=== PATIENT | female | born 1995 | race Caucasian/White ===

== ENCOUNTER 2017-08-06 01:59 | Emergency (ER) | payer BC ==
[2017-08-06] MEDS ORDERED: Sodium Chloride 0.9% 1,000 ML IV SCH (02:45)
[2017-08-06] MEDS ORDERED: HYDROmorphone 0.5 MG/0.5 ML SYRINGE IVPUSH ONE (02:56)
[2017-08-06] MEDS ORDERED: Metoclopramide 10 MG/2 ML SDV IVPUSH ONE (02:57)
[2017-08-06] MEDS ORDERED: diphenhydrAMINE 50 MG/ML SDV IVPUSH ONE (02:57)
[2017-08-06] MEDS ORDERED: Dextrose 5%-0.9% NaCl 1,000 ML IV SCH (03:00)
--- NOTE | 2017-08-06 03:02 | EDM.PDOC ---
ED HPI GENERAL MEDICAL PROBLEM - General Chief Complaint: Abdominal Pain Stated Complaint: RIGHT ABDOMINAL PAIN Time Seen by Provider: 08/06/17 02:50 Source of Information: Reports: Patient, Family (friend) History Limitations: Reports: No Limitations - History of Present Illness INITIAL COMMENTS - FREE TEXT/NARRATIVE: 22-year-old female attends the ED with complaints of severe lower abdominal/ pelvic pain. At about 0130 hrs. this morning while having intercourse she developed sudden onset of severe right-sided pelvic pain. Describes his pain is very sharp stabbing and almost tearing in nature. She states the pain was severe i.e. 10 out of 10 and nearly made her vomit. Subsequently she had to walk hunched over. Coughing or sitting up makes the pain worse. She does not believe she could be as she has Norplant in her right upper arm. No has significant withdrawal bleeds however. It is been in place for at least 18 months. Bowel function has been normal. She complains of no genitourinary complaints. No fever or chills. Onset: Today Onset Date: 08/06/17 Onset Time: 01:30 Duration: Minutes: Location: Reports: Pelvis (Right lower quadrant of the abdomen and pelvis.) Quality: Reports: Sharp, Stabbing Severity: Severe (Was 10 out of 10. Currently 8 out of 10.) Improves with: Reports: Rest Worsens with: Reports: Other (Sitting up or coughing makes it worse.), Movement (Lying really still in pain will be down to 1 or 2.) Context: Reports: Other (Occurred during sexual intercourse.). 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: Other (see below) (None.) Abdominal Pain Score (Numeric/FACES): 5 - Related Data Allergies Allergy/AdvReac Type Severity Reaction Status Date / Time fruit Allergy Anaphylactic Uncoded 08/06/17 02:13 Shock Home Meds: Home Meds Escitalopram Oxalate [Lexapro] 30 mg PO DAILY 08/06/17 [History] oxyCODONE HCl/Acetaminophen [Percocet 5-325 mg Tablet] 1 - 2 each PO Q4H PRN # 10 tablet 08/06/17 [Rx] Past Medical History Genitourinary History: Reports: UTI, Recurrent 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: , Other (See Below) Other OB/BYN History: Musculoskeletal History: Reports: Other (See Below) Other Musculoskeletal History: fx right arm and wrist Neurological History: Reports: Migraines Psychiatric History: Reports: Depression, Other (See Below) Other Psychiatric History: possibly bipolar, no official diagnosis - Past Surgical History HEENT Surgical History: Reports: Other (See Below) Other HEENT Surgeries/Procedures: sinus surgery GI Surgical History: Reports: Hernia, Abdominal Social & Family History - Tobacco Use Smoking Status *Q: Current Every Day Smoker Years of Tobacco use: 1 Packs/Tins Daily: 0.1 - Caffeine Use Caffeine Use: Reports: Soda - Recreational Drug Use Recreational Drug Use: No - Living Situation & Occupation Living situation: Reports: Single Occupation: Employed ED ROS GENERAL - Review of Systems Review Of Systems: See Below Constitutional: Reports: No Symptoms HEENT: Reports: No Symptoms Respiratory: Reports: No Symptoms Cardiovascular: Reports: No Symptoms Endocrine: Reports: No Symptoms GI/Abdominal: Reports: Abdominal Pain (Right lower quadrant abdominal/pelvic pain.) : Reports: No Symptoms Musculoskeletal: Reports: No Symptoms Skin: Reports: No Symptoms Neurological: Reports: No Symptoms Psychiatric: Reports: No Symptoms ED EXAM, GI/ABD - Physical Exam Exam: See Below Exam Limited By: No Limitations General Appearance: Alert, WD/WN, Anxious, Moderate Distress Eyes: Bilateral: Normal Appearance Respiratory/Chest: No Respiratory Distress, Lungs Clear, Normal Breath Sounds Cardiovascular: Normal Peripheral Pulses, Regular Rate, Rhythm, No Edema, No Murmur GI/Abdominal Exam: Soft (Hypoactive bowel sounds), No Organomegaly (No true peritoneal signs identified), No Distention, No Abnormal Bruit, No Mass, Pelvis Stable, Guarding, Tender (Tender suprapubically and right lower quadrant of the abdomen with mild guarding.), Abnormal Bowel Sounds, Other. No: Rigid, Rebound (Female) Exam: Normal External Exam, Adnexal Tenderness (Left side with movement of the uterus to the left and also movement of the uterus posteriorly.) , Cervix Motion Tenderness. No: Adnexal Mass, Cervical Fluid, Cervical Lesions , Enlarged Uterus, Heart Tones, Products of Conception, Uterine Tenderness , Vaginal Bleeding Back Exam: Normal Inspection, Full Range of Motion. No: CVA Tenderness (L), CVA Tenderness (R) Extremities: Normal Inspection, Normal Range of Motion, Non-Tender, No Pedal Edema Neurological: Alert, Oriented, CN II-XII Intact, Normal Cognition, Normal Gait Psychiatric: Normal Affect, Normal Mood Skin Exam: Warm, Dry, Intact, Normal Color, No Rash Course - Vital Signs Last Recorded V/S: Last Vital Signs Temp 36.3 C 08/06/17 02:14 Pulse 95 08/06/17 02:14 Resp 18 08/06/17 02:14 BP 117/68 08/06/17 02:14 Pulse Ox 99 08/06/17 02:14 - Orders/Labs/Meds Orders: Active Orders 24 hr Category Date Time Status Transvaginal Non OB [US] Stat Exams 08/06/17 03:27 Ordered ABO/RH TYPE [BBK] Stat Lab 08/06/17 02:34 Results PATIENT RETYPE [BBK] Stat Lab 08/06/17 02:34 Results Dextrose 5%-0.9% NaCl [Dextrose 5%-Normal Saline] 1,000 Med 08/06/17 03:00 Active ml IV ASDIRECTED Ketorolac [Toradol] Med 08/06/17 04:30 Active 30 mg IVPUSH ONETIME Sodium Chloride 0.9% [Normal Saline] 1,000 ml Med 08/06/17 02:45 Active IV ASDIRECTED Medication Orders Sodium Chloride (Normal Saline) 1,000 mls @ 100 mls/hr IV ASDIRECTED UMM Last Admin: 08/06/17 02:46 Dose: 100 mls/hr Dextrose/Sodium Chloride (Dextrose 5%-Normal Saline) 1,000 mls @ 150 mls/hr IV ASDIRECTED UMM Last Admin: 08/06/17 03:22 Dose: 150 mls/hr Ketorolac Tromethamine (Toradol) 30 mg IVPUSH ONETIME UMM Labs: Laboratory Tests 08/06/17 08/06/17 08/06/17 Range/Units 02:34 02:34 02:34 WBC 6.25 (3.98-10.04) K/mm3 RBC 4.51 (3.98-5.22) M/mm3 Hgb 12.8 (11.2-15.7) gm/L Hct 37.7 (34.1-44.9) % MCV 83.6 (79.4-94.8) fl MCH 28.4 (25.6-32.2) pg MCHC 34.0 (32.2-35.5) g/dl RDW Std Deviation 38.2 (36.4-46.3) fL Plt Count 352 (182-369) K/mm3 MPV 9.0 L (9.4-12.3) fl Neutrophils % (Manual) 60 (40-60) % Band Neutrophils % 0 (0-10) % Lymphocytes % (Manual) 32 (20-40) % Atypical Lymphs % 6 % Monocytes % (Manual) 1 L (2-10) % Eosinophils % (Manual) 1 (0.7-5.8) % Basophils % (Manual) 0 L (0.1-1.2) Platelet Estimate Adequate Plt Morphology Comment Normal RBC Morph Comment Normal Sodium 140 (136-145) mEq/L Potassium 4.0 (3.5-5.1) mEq/L Chloride 104 (98-107) mEq/L Carbon Dioxide 23 (21-32) mEq/L Anion Gap 17.0 H (5-15) BUN 15 (7-18) mg/dL Creatinine 0.8 (0.55-1.02) mg/dL Est Cr Clr Drug Dosing 96.06 mL/min Estimated GFR (MDRD) > 60 (>60) mL/min BUN/Creatinine Ratio 18.8 H (14-18) Glucose 91 (74-106) mg/dL Calcium 8.9 (8.5-10.1) mg/dL Total Bilirubin 0.1 L (0.2-1.0) mg/dL AST 16 (15-37) U/L ALT 25 (14-59) U/L Alkaline Phosphatase 58 (46-116) U/L C-Reactive Protein < 0.2 (<1.0) mg/dL Total Protein 6.9 (6.4-8.2) g/dl Albumin 3.7 (3.4-5.0) g/dl Globulin 3.2 gm/dL Albumin/Globulin Ratio 1.2 (1-2) HCG, Qual Negative (NEGATIVE) Urine Color (Yellow) Urine Appearance (Clear) Urine pH (5.0-8.0) Ur Specific [place] (1.005-1.030) Urine Protein (Negative) Urine Glucose (UA) (Negative) Urine Ketones (Negative) Urine Occult Blood (Negative) Urine Nitrite (Negative) Urine Bilirubin (Negative) Urine Urobilinogen (0.2-1.0) Ur Leukocyte Esterase (Negative) Urine RBC (0-5) /hpf Urine WBC (0-5) /hpf Ur Epithelial Cells (0-5) /hpf Urine Bacteria (FEW) /hpf Urine Mucus (FEW) /hpf Blood Type 08/06/17 08/06/17 Range/Units 02:34 03:40 WBC (3.98-10.04) K/mm3 RBC (3.98-5.22) M/mm3 Hgb (11.2-15.7) gm/L Hct (34.1-44.9) % MCV (79.4-94.8) fl MCH (25.6-32.2) pg MCHC (32.2-35.5) g/dl RDW Std Deviation (36.4-46.3) fL Plt Count (182-369) K/mm3 MPV (9.4-12.3) fl Neutrophils % (Manual) (40-60) % Band Neutrophils % (0-10) % Lymphocytes % (Manual) (20-40) % Atypical Lymphs % % Monocytes % (Manual) (2-10) % Eosinophils % (Manual) (0.7-5.8) % Basophils % (Manual) (0.1-1.2) Platelet Estimate Plt Morphology Comment RBC Morph Comment Sodium (136-145) mEq/L Potassium (3.5-5.1) mEq/L Chloride (98-107) mEq/L Carbon Dioxide (21-32) mEq/L Anion Gap (5-15) BUN (7-18) mg/dL Creatinine (0.55-1.02) mg/dL Est Cr Clr Drug Dosing mL/min Estimated GFR (MDRD) (>60) mL/min BUN/Creatinine Ratio (14-18) Glucose (74-106) mg/dL Calcium (8.5-10.1) mg/dL Total Bilirubin (0.2-1.0) mg/dL AST (15-37) U/L ALT (14-59) U/L Alkaline Phosphatase (46-116) U/L C-Reactive Protein (<1.0) mg/dL Total Protein (6.4-8.2) g/dl Albumin (3.4-5.0) g/dl Globulin gm/dL Albumin/Globulin Ratio (1-2) HCG, Qual (NEGATIVE) Urine Color Yellow (Yellow) Urine Appearance Clear (Clear) Urine pH 5.5 (5.0-8.0) Ur Specific [place] > or = 1.030 (1.005-1.030) Urine Protein Negative (Negative) Urine Glucose (UA) Negative (Negative) Urine Ketones Negative (Negative) Urine Occult Blood Negative (Negative) Urine Nitrite Negative (Negative) Urine Bilirubin Negative (Negative) Urine Urobilinogen 0.2 (0.2-1.0) Ur Leukocyte Esterase Negative (Negative) Urine RBC 0-5 (0-5) /hpf Urine WBC 0-5 (0-5) /hpf Ur Epithelial Cells 0-5 (0-5) /hpf Urine Bacteria Rare (FEW) /hpf Urine Mucus Moderate H (FEW) /hpf Blood Type A POSITIVE Meds: Medications Generic Name Dose Route Start Last Admin Trade Name Freq PRN Reason Stop Dose Admin Sodium Chloride 1,000 mls @ 100 mls/hr 08/06/17 02:45 08/06/17 02:46 Normal Saline IV 100 mls/hr ASDIRECTED UMM Administration Dextrose/Sodium Chloride 1,000 mls @ 150 mls/hr 08/06/17 03:00 08/06/17 03:22 Dextrose 5%-Normal Saline IV 150 mls/hr ASDIRECTED UMM Administration Ketorolac Tromethamine 30 mg 08/06/17 04:30 Toradol IVPUSH ONETIME UMM Discontinued Medications Generic Name Dose Route Start Last Admin Trade Name Freq PRN Reason Stop Dose Admin Diphenhydramine HCl 25 mg 08/06/17 02:57 08/06/17 03:19 Benadryl IVPUSH 08/06/17 02:58 25 mg ONETIME ONE Administration Hydromorphone HCl 0.5 mg 08/06/17 02:56 08/06/17 03:15 Dilaudid IVPUSH 08/06/17 02:57 0.5 mg ONETIME ONE Administration Metoclopramide HCl 7.5 mg 08/06/17 02:57 08/06/17 03:17 Reglan IVPUSH 08/06/17 02:58 7.5 mg ONETIME ONE Administration - Radiology Interpretation Free Text/Narrative:: 22-year-old female attends the ED with acute onset of severe right lower quadrant abdominal pain that started during sexual intercourse. Pain was sudden onset explosive sharp stabbing and tearing. Subsequently pain was reported to be 10 out of 10. She had to walk hunched over. History of ovarian cyst. She has a Norplant in her right upper extremity. She still has fairly heavy withdrawal periods. Hypoactive bowel sounds on abdominal examination with moderate tenderness suprapubically and right lower quadrant of the abdomen with slight guarding. Back examination revealed left adnexal tenderness more so than the right. No masses could be identified in either adnexa. Uterus is slightly enlarged. Plan IV D5 normal saline at 150 mils per hour. Will be given Dilaudid 0.5 mg IV for pain relief with Reglan 7.5 mg IV. Will also give her Benadryl 25 mg IV since she is on SSRIs and potential for dystonic reaction exists. Plan is for routine labs to rule out . Urinalysis if one becomes available. We' ll proceed with pelvic ultrasound transvaginally. Suspect ruptured left ovarian cyst. - Re-Assessments/Exams Free Text/Narrative Re-Assessment/Exam: 08/06/17 03:31 : Labs reveal a normal white count at 6.25 with 60% neutrophils and no bands. Hemoglobin is 12.8 with hematocrit of 37.7. Platelet count is normal at 352,000. Sodium is 140 with potassium of 4.0. Toward 104 with a bicarbonate of 23. And a gap is mildly elevated at 17.0. BUN is 15. Creatinine was 0.8. Glucose is 91. Liver function is normal. C-reactive protein is less than 0.2. HCG was negative. Urinalysis was negative. Blood group is A+. 08/06/17 04:10: Transvaginal ultrasound reveals a collapsed left ovarian cyst compatible with a recent rupture. There is fluid collection in the pouch of Percy primarily on the right side of the pelvis which would explain why most her pain is felt in the right side. No other abnormalities were identified within the uterine adnexa. Good blood flow to both adnexa's. She is feeling much improved after IV analgesia. I will give her Toradol 30 mg IV before pulling the IV out. She will be discharged to home to use Aleve 2 tablets every 8 hours as needed to relieve pain and inflammation. I also send a prescription home for 10 Percocet 5/325 milligram tabs 1 tablet every 4-6 hours needed for pain relief not controlled by leave alone. Note also given to excuse her from the work place for the next 48 hours. Departure - Departure Time of Disposition: 04:20 Disposition: Home, Self-Care 01 Condition: Fair Clinical Impression: Acute pelvic pain, female, Ruptured ovarian cyst - Discharge Information Prescriptions: oxyCODONE HCl/Acetaminophen [Percocet 5-325 mg Tablet] 1 - 2 each PO Q4H PRN # 10 tablet PRN Reason: pain relief. Referrals: Johnathon Caballero MD [Primary Care Provider] - Forms: ED Department Discharge, ED Return to Work/School Form Additional Instructions: Evaluation in the emergency room tonight in regards to sudden onset of severe pelvic pain during intercourse. Examination also revealed significant tenderness in the left side of the pelvis but her pain was mostly on the right side. An ultrasound performed reveals that a left ovarian cyst has ruptured and partially collapsed. There is no active bleeding within your abdomen. Most of the fluid however has collected on the right lower portion of the pelvis explaining the right sided pain. Treatment is time for your body to clean up the fluid in the pelvis which usually is 3-5 days. Just low-level activity and refrain from intercourse for the next 5 days. Chest Aleve 2 tablets every 8 hours to reduce inflammation and pain. Percocet tablets 5/325 usually one tablet every 4-6 hours with the Aleve will alleviate pain over the next 2-3 days. Suggest off work today and tomorrow. Follow-up with your physician specialist if any further problems occur. - My Orders Last 24 Hours: My Active Orders 08/06/17 02:34 ABO/RH TYPE [BBK] Stat PATIENT RETYPE [BBK] Stat 08/06/17 02:45 Sodium Chloride 0.9% [Normal Saline] 1,000 ml IV ASDIRECTED 08/06/17 03:00 Dextrose 5%-0.9% NaCl [Dextrose 5%-Normal Saline] 1,000 ml IV ASDIRECTED 08/06/17 03:27 Transvaginal Non OB [US] Stat 08/06/17 04:30 Ketorolac [Toradol] 30 mg IVPUSH ONETIME - Assessment/Plan Last 24 Hours: My Active Orders 08/06/17 02:34 ABO/RH TYPE [BBK] Stat PATIENT RETYPE [BBK] Stat 08/06/17 02:45 Sodium Chloride 0.9% [Normal Saline] 1,000 ml IV ASDIRECTED 08/06/17 03:00 Dextrose 5%-0.9% NaCl [Dextrose 5%-Normal Saline] 1,000 ml IV ASDIRECTED 08/06/17 03:27 Transvaginal Non OB [US] Stat 08/06/17 04:30 Ketorolac [Toradol] 30 mg IVPUSH ONETIME
[2017-08-06] MEDS ORDERED: Ketorolac 30 MG/ML SDV IVPUSH SCH (04:30)
--- NOTE | 2017-08-06 11:53 | US ---
Pelvic ultrasound: Multiple real-time images were obtained transvaginally. Uterus changed from anteverted to retroverted during the exam. No focal myometrial abnormality is seen. Endometrial thickness is normal at 5 mm. Free fluid is seen within the cul-de-sac and within the left adnexa. Follicles are noted within the right ovary. Left ovary shows a small cyst measuring 2.0 cm. There is an additional irregular fluid collection within the left ovary possibly due to collapsing cyst as an etiology for the free fluid. No additional ovary or adnexal abnormalities are seen. Measurements: Uterus: Length 7.4 cm, AP height 3.7 cm, transverse measurement was not made. Right ovary: 3.4 x 1.9 x 2.6 cm Left ovary: 5.3 x 2.6 x 2.6 cm Impression: 1. Free fluid within the pelvis and left adnexa. Small irregular cyst within the left ovary most likely representing etiology for the for the free fluid. Additional small cyst which is likely physiologic within the left ovary. 2. Pelvic ultrasound is otherwise unremarkable. Diagnostic code #3 Agree with preliminary report issued by [employer] ([facility] preliminary report dictated on 08/06/17, 5:35 AM Central Time)
== END 2017-08-06 04:30 | disposition home or self-care (01) ==
LOC: JD.ED 01:59
DX: N83.201 Unspecified ovarian cyst, right side (principal); F32.9 Major depressive disorder, single episode, unspecified; F17.210 Nicotine dependence, cigarettes, uncomplicated; Z79.899 Other long term (current) drug therapy; Z91.018 Allergy to other foods
CPT/HCPCS: 36415; 76830; 80053; 81001; 84703; 85025; 86140; 86900; 86901; 96361; 96374; 96375; 99284; J1170; J1200; J1885; J2765; J7040; J7042

== ENCOUNTER 2017-10-05 12:02 | Emergency (ER) | payer BC ==
[2017-10-05] MEDS ORDERED: Lidocaine 1% with EPINEPHrine 1:100,000 20 ML MDV INJECT ONE (12:26)
--- NOTE | 2017-10-05 12:36 | EDM.PDOC ---
<Hafsa Caicedo - Last Filed: 10/05/17 18:36> ED HPI GENERAL MEDICAL PROBLEM - General Chief Complaint: Laceration Stated Complaint: ARM LAC Time Seen by Provider: 10/05/17 12:25 Source of Information: Reports: Patient History Limitations: Reports: No Limitations - History of Present Illness INITIAL COMMENTS - FREE TEXT/NARRATIVE: Patient is a 22 YO female who presents today for a laceration on her left arm. She states she tripped and fell down the stairs this morning. The stairs have some nails that she thinks is the cause of the laceration to the arm. She denies headache, chest pain, pelvic pain or dizziness. She denies injury to any other part of her body. Patient is unaware of her last tetanus. 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: Musculoskeletal History: Reports: Fracture Other Musculoskeletal History: fx right arm and wrist Neurological History: Reports: Migraines Psychiatric History: Reports: Bipolar, Depression Other Psychiatric History: possibly bipolar, no official diagnosis - Past Surgical History HEENT Surgical History: Reports: Naso-Sinus Surgery GI Surgical History: Reports: Hernia, Abdominal Social & Family History - Tobacco Use Smoking Status *Q: Former Smoker Years of Tobacco use: 1 Packs/Tins Daily: 0.1 Used Tobacco, but Quit: Yes Month/Year Tobacco Last Used: 3 months - Caffeine Use Caffeine Use: Reports: Energy Drinks - Recreational Drug Use Recreational Drug Use: No - Living Situation & Occupation Living situation: Reports: Single Occupation: Employed ED ROS GENERAL - Review of Systems Review Of Systems: See Below Constitutional: Reports: No Symptoms HEENT: Reports: No Symptoms Respiratory: Reports: No Symptoms Cardiovascular: Reports: No Symptoms GI/Abdominal: Reports: No Symptoms Musculoskeletal: Reports: No Symptoms Skin: Reports: Other (laceration left proximal forearm) Neurological: Reports: No Symptoms Psychiatric: Reports: No Symptoms ED EXAM, SKIN/RASH Exam: See Below Exam Limited By: No Limitations General Appearance: Alert, WD/WN, No Apparent Distress Skin: Other (SubQ laceration approximately 4 cm to the left proximal forearm) Location, Skin: Upper Extremity, Left ED SKIN PROCEDURES - Laceration/Wound Repair Left Lower Anterior Proximal Arm Lac/Wound length In cm: 4 Appearance: Subcutaneous Distal NVT: Neuro & Vascular Intact, No Tendon Injury Anesthetic Type: Local Local Anesthesia - Lidocaine (Xylocaine): 1% with EPI Local Anesthetic Volume: 3cc Skin Prep: Chlorhexidine (Hibiciens), Saline, Sterile Drape Exploration/Debridement/Repair: No Foreign Material Found Closed with: Sutures Suture Size: 4-0 # of Sutures: 5 Suture Type: Nylon Sterile Dressing Applied: Nurse Tetanus Status Addressed: Other (tetanus given today) Course - Vital Signs Last Recorded V/S: Last Vital Signs Temp 36.9 C 10/05/17 12:08 Pulse 70 10/05/17 12:08 Resp 16 10/05/17 12:08 BP 108/72 10/05/17 12:08 Pulse Ox 98 10/05/17 12:08 - Orders/Labs/Meds Orders: Active Orders 24 hr Category Date Time Status Vaccines to be Administered [RC] PER UNIT ROUTINE Care 10/05/17 12:52 Active Meds: Medications Discontinued Medications Generic Name Dose Route Start Last Admin Trade Name Freq PRN Reason Stop Dose Admin Diphtheria/Tetanus/Acell Pertussis 0.5 ml 10/05/17 12:52 10/05/17 13:14 Adacel IM 10/05/17 12:53 0.5 ml .ONCE ONE Administration Lidocaine/Epinephrine 20 ml 10/05/17 12:26 10/05/17 12:32 Xylocaine 1% With Epinephrine 1:100,000 INJECT 10/05/17 12:27 20 ml ONETIME ONE Administration Departure - Departure Disposition: Home, Self-Care 01 Clinical Impression: Laceration of forearm, left Qualifiers: Encounter type: initial encounter Qualified Code(s): S51.812A - Laceration without foreign body of left forearm, initial encounter - Discharge Information Instructions: Laceration Care, Adult, [id number] Referrals: Johnathon Caballero MD [Primary Care Provider] - Forms: ED Department Discharge, ED Return to Work/School Form Additional Instructions: Evaluation the emergency room today in regards to injury to the volar aspect of your left forearm. Sharp in the stairwell resulted in a laceration to the proximal left volar forearm. Laceration is a little over 2 cm in length. Wound was cleansed and then sutured under local anesthetic. Treatment at home is to daily cleanse the wound was soap and water showering is okay but the wound should not be soaked under water until the stitches are removed. Apply topical antibiotic such bacitracin or Polysporin to the wound once daily and cover with a bandage if needed to keep clean and from friction from over lying clothing. Sutures will need to be removed in 10 days' time. Of course return to medical care sooner if you see any signs of infection such as redness increased swelling or obvious pus. - My Orders Last 24 Hours: My Active Orders 10/05/17 12:52 Vaccines to be Administered [RC] PER UNIT ROUTINE - Assessment/Plan Last 24 Hours: My Active Orders 10/05/17 12:52 Vaccines to be Administered [RC] PER UNIT ROUTINE <Bipin Moreno - Last Filed: 10/05/17 19:24> ED HPI GENERAL MEDICAL PROBLEM - History of Present Illness Onset: Today Onset Date: 10/05/17 Onset Time: 11:30 Duration: Minutes: Location: Reports: Upper Extremity, Left (Left proximal volar forearm.) Quality: Reports: Ache, Stabbing Severity: Mild Improves with: Reports: None Worsens with: Reports: None Context: Reports: Other (Slipped while going down the stairwell and she believes that a ailyn nail or screw had caught her in the proximal forearm and resulted in a 1 inch laceration.) Associated Symptoms: Denies: Confusion, Chest Pain, Cough, Diaphoresis, Fever/ Chills, Headaches, Nausea/Vomiting Treatments 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.) ED SKIN PROCEDURES - Laceration/Wound Repair Left Proximal Arm Lac/Wound length In cm: 2.0 Distal NVT: Neuro & Vascular Intact Anesthetic Type: Local Local Anesthesia - Lidocaine (Xylocaine): 1% Plain Local Anesthetic Volume: 3cc Skin Prep: Saline Closed with: Sutures Suture Size: 4-0 # of Sutures: 5 Suture Type: Nylon, Interrupted, Simple Course - Orders/Labs/Meds Orders: Active Orders 24 hr Category Date Time Status Vaccines to be Administered [RC] PER UNIT ROUTINE Care 10/05/17 12:52 Active - Radiology Interpretation Free Text/Narrative:: 22-year-old female presents to the ED with an acute laceration to her left proximal volar forearm. This occurred when she tripped going down [employer] and she believes a ailyn nail caught her skin and toward. This resulted in a 2 cm laceration to the proximal forearm. Wound will be irrigated and cleansed. T gap will be updated. Will require suture repair. - Re-Assessments/Exams Free Text/Narrative Re-Assessment/Exam: 10/05/17 13;15: Laceration repaired under local anesthetic. Length was 2 cm. 5 sutures of 4-0 Ethilon were used to close the wound. Patient will cleanse the wound daily with soap and water. Showering is okay. She will apply topical atomoxetine bacitracin Polysporin to the wound once daily. Sutures are removed in 10 days' time Departure - Departure Time of Disposition: 13:28 Condition: Fair - My Orders Last 24 Hours: My Active Orders 10/05/17 12:52 Vaccines to be Administered [RC] PER UNIT ROUTINE - Assessment/Plan Last 24 Hours: My Active Orders 10/05/17 12:52 Vaccines to be Administered [RC] PER UNIT ROUTINE
[2017-10-05] MEDS ORDERED: Diphtheria,Pertussis(Acell),Tetanus Vaccine 0.5 ML SDV IM ONE (12:52)
== END 2017-10-05 13:39 | disposition home or self-care (01) ==
LOC: JD.ED 12:02
DX: S51.812A Laceration without foreign body of left forearm, initial encounter (principal); Z91.018 Allergy to other foods; Z79.899 Other long term (current) drug therapy; Z87.891 Personal history of nicotine dependence; Z23 Encounter for immunization; W26.8XXA Contact with other sharp object(s), not elsewhere classified, initial encounter
CPT/HCPCS: 12002; 90471; 90715; 99282-25; 99283-25

== ENCOUNTER 2018-08-17 09:50 | Day surgery (SDC) | payer BC ==
[~2018-08-17 09:50] MED LIST: Dexamethasone 4 MG/ML 5 ML MDV ONE; Ketorolac 30 MG/ML SDV ONE; Lactated Ringers 0 ML ONE; Lactated Ringers 1,000 ML IV SCH; Lidocaine 1% PF 2 ML SDV ONE; Lidocaine 1%/Sod Bicarbonate in NS 8.4% 1 ML Syringe IDERM PRN; Midazolam 1 MG/ML 2 ML SDV ONE; Ondansetron 4 MG/2 ML SDV ONE; Propofol 200 MG/20 ML SDV ONE; Rocuronium 50 MG/5 ML Vial ONE; Sodium Chloride 0.9% 10 ML Syringe FLUSH PRN; ceFAZolin 1 GM Vial ONE; fentaNYL 250 MCG/5 ML SDV ONE
[2018-08-17] MEDS ORDERED: Bupivacaine 0.5% 30 ML SDV ONE (10:16)
[2018-08-17] MEDS ORDERED: Scopolamine 1.5 MG Transdermal Patch TOP ONE (10:52)
[2018-08-17] MEDS ORDERED: Propofol 200 MG/20 ML SDV ONE (10:54)
--- NOTE | 2018-08-17 11:10 | PCM.PREANE ---
Preanesthetic Assessment - Anesthesia/Transfusion/Family Hx Anesthesia History: Prior Anesthesia Reaction Type of Anesthesia Reaction: Excessive Somnolence, Excessive Nausea/Vomiting Family History of Anesthesia Reaction: No - Review of Systems General: No Symptoms Pulmonary: No Symptoms, Other (Quite smoking 3 weeks ago. ) Cardiovascular: No Symptoms Gastrointestinal: No Symptoms Neurological: No Symptoms Other: Reports: Depression, Anxiety (Bipolar/PTSD) - Physical Assessment NPO Status Date: 08/16/18 NPO Status Time: 22:00 O2 Sat by Pulse Oximetry: 99 Respiratory Rate: 16 Vital Signs: Last Vital Signs Temp 36.8 C 08/17/18 10:05 Pulse 66 08/17/18 10:05 Resp 16 08/17/18 10:05 BP 115/66 08/17/18 10:05 Pulse Ox 99 08/17/18 10:05 Height: 1.63 m Weight: 70.76 kg ASA Class: 2 Mental Status: Alert & Oriented x3 Dentition: Reports: Normal Dentition Thyro-Mental Finger Breadths: 3 Mouth Opening Finger Breadths: 3 ROM/Head Extension: Full Lungs: Clear to Auscultation, Normal Respiratory Effort Cardiovascular: Regular Rate, Regular Rhythm - Lab Values: Laboratory Last Values WBC 3.86 K/mm3 (3.98-10.04) L 08/16/18 11:40 RBC 4.70 M/mm3 (3.98-5.22) 08/16/18 11:40 Hgb 13.2 gm/L (11.2-15.7) 08/16/18 11:40 Hct 38.7 % (34.1-44.9) 08/16/18 11:40 MCV 82.3 fl (79.4-94.8) 08/16/18 11:40 MCH 28.1 pg (25.6-32.2) 08/16/18 11:40 MCHC 34.1 g/dl (32.2-35.5) 08/16/18 11:40 RDW Std Deviation 36.5 fL (36.4-46.3) 08/16/18 11:40 Plt Count 327 K/mm3 (182-369) 08/16/18 11:40 MPV 9.2 fl (9.4-12.3) L 08/16/18 11:40 Neut % (Auto) 54.4 % (34.0-71.1) 08/16/18 11:40 Lymph % (Auto) 38.6 % (19.3-51.7) 08/16/18 11:40 [place] % (Auto) 6.0 % (4.7-12.5) 08/16/18 11:40 Eos % (Auto) 0.5 (0.7-5.8) L 08/16/18 11:40 Baso % (Auto) 0.5 % (0.1-1.2) 08/16/18 11:40 Neut # (Auto) 2.10 K/mm3 (1.56-6.13) 08/16/18 11:40 Lymph # (Auto) 1.49 K/mm3 (1.18-3.74) 08/16/18 11:40 [place] # (Auto) 0.23 K/mm3 (0.24-0.36) L 08/16/18 11:40 Eos # (Auto) 0.02 K/mm3 (0.04-0.36) L 08/16/18 11:40 Baso # (Auto) 0.02 K/mm3 (0.01-0.08) 08/16/18 11:40 Urine Color Yellow (Yellow) 08/16/18 11:40 Urine Appearance Slt cloudy (Clear) H 08/16/18 11:40 Urine pH 6.0 (5.0-8.0) 08/16/18 11:40 Ur Specific [place] 1.025 (1.005-1.030) 08/16/18 11:40 Urine Protein Negative (Negative) 08/16/18 11:40 Urine Glucose (UA) Negative (Negative) 08/16/18 11:40 Urine Ketones Negative (Negative) 08/16/18 11:40 Urine Occult Blood Negative (Negative) 08/16/18 11:40 Urine Nitrite Positive (Negative) H 08/16/18 11:40 Urine Bilirubin Negative (Negative) 08/16/18 11:40 Urine Urobilinogen 0.2 (0.2-1.0) 08/16/18 11:40 Ur Leukocyte Esterase Negative (Negative) 08/16/18 11:40 Urine HCG, Qual Negative (NEGATIVE) 08/16/18 11:40 - Allergies Allergies/Adverse Reactions: Allergies Allergy/AdvReac Type Severity Reaction Status Date / Time [place] And Derivatives Allergy Anaphylactic Verified 08/16/18 13:43 Shock fruit Allergy Anaphylactic Uncoded 08/16/18 13:43 Shock - Anesthesia Plan Pre-Op Medication Ordered: Other (Scopalamine patch) - Acknowledgements Anesthesia Type Planned: General Anesthesia Pt an Appropriate Candidate for the Planned Anesthesia: Yes Alternatives and Risks of Anesthesia Discussed w Pt/Guardian: Yes Pt/Guardian Understands and Agrees with Anesthesia Plan: Yes PreAnesthesia Questionnaire HEENT History: Reports: Impaired Vision Cardiovascular History: Reports: None Respiratory History: Reports: None Genitourinary History: Reports: UTI, Recurrent 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: , Other (See Below) Other OB/BYN History: ovarian cyst, pelvic pain, dyspareunia Musculoskeletal History: Reports: Fracture Other Musculoskeletal History: fx right arm and wrist Neurological History: Reports: Migraines Psychiatric History: Reports: Bipolar, Depression Other Psychiatric History: possibly bipolar, no official diagnosis Endocrine/Metabolic History: Reports: None Hematologic History: Reports: None Immunologic History: Reports: None Oncologic (Cancer) History: Reports: None Dermatologic History: Reports: None - Past Surgical History Head Surgeries/Procedures: Reports: None HEENT Surgical History: Reports: Naso-Sinus Surgery Other HEENT Surgeries/Procedures: sinus surgery Cardiovascular Surgical History: Reports: None Respiratory Surgical History: Reports: None GI Surgical History: Reports: Hernia, Abdominal, Hernia Repair/Other Female Surgical History: Reports: Section Endocrine Surgical History: Reports: None Neurological Surgical History: Reports: None Musculoskeletal Surgical History: Reports: None Oncologic Surgical History: Reports: None Dermatological Surgical History: Reports: None - SUBSTANCE USE Smoking Status *Q: Former Smoker Recreational Drug Use History: No - HOME MEDS Home Medications: Home Meds lamoTRIgine [Lamictal] 50 mg PO BID 10/05/17 [History] Escitalopram [Lexapro] 25 mg PO BID 08/16/18 [History] [place] Carbonate 300 mg PO DAILY 08/16/18 [History] traZODone HCl [Trazodone HCl] 50 mg PO BEDTIME 08/16/18 [History] - CURRENT (IN HOUSE) MEDS Current Meds: Current Medications Lactated Ringer's (Ringers, Lactated) 1,000 mls @ 125 mls/hr IV ASDIRECTED UMM Stop: 08/20/18 23:00 Last Admin: 08/17/18 10:45 Dose: 125 mls/hr Lidocaine/Sodium Bicarbonate (Buffered Lidocaine 1% In Ns 8.4%) 0.25 ml IDERM ONETIME PRN PRN Reason: Prior to IV Start Stop: 08/20/18 23:00 Last Admin: 08/17/18 10:45 Dose: 0.25 ml Sodium Chloride (Saline Flush) 10 ml FLUSH ASDIRECTED PRN PRN Reason: Keep Vein Open Stop: 08/20/18 23:00 Discontinued Medications Bupivacaine HCl (Marcaine 0.5%) Confirm Administered Dose 30 ml .ROUTE .STK-MED ONE Stop: 08/17/18 10:17 Cefazolin Sodium (Ancef) Confirm Administered Dose 2 gm .ROUTE .STK-MED ONE Stop: 08/17/18 08:58 Dexamethasone (Dexamethasone) Confirm Administered Dose 20 mg .ROUTE .STK-MED ONE Stop: 08/17/18 08:59 Fentanyl (Sublimaze) Confirm Administered Dose 250 mcg .ROUTE .STK-MED ONE Stop: 08/17/18 08:59 Lactated Ringer's (Ringers, Lactated) Confirm Administered Dose 1,000 mls @ as directed .ROUTE .STK-MED ONE Stop: 08/17/18 08:58 Ketorolac Tromethamine (Toradol) Confirm Administered Dose 30 mg .ROUTE .STK- MED ONE Stop: 08/17/18 08:59 Lidocaine HCl (Xylocaine-Mpf 1%) Confirm Administered Dose 4 ml .ROUTE .STK-MED ONE Stop: 08/17/18 08:58 Midazolam HCl (Versed 1 Mg/Ml) Confirm Administered Dose 2 mg .ROUTE .STK-MED ONE Stop: 08/17/18 08:59 Ondansetron HCl (Zofran) Confirm Administered Dose 4 mg .ROUTE .STK-MED ONE Stop: 08/17/18 08:58 Propofol (Diprivan 20 Ml) Confirm Administered Dose 400 mg .ROUTE .STK-MED ONE Stop: 08/17/18 08:58 Propofol (Diprivan 20 Ml) Confirm Administered Dose 600 mg .ROUTE .STK-MED ONE Stop: 08/17/18 10:55 Rocuronium [place] (Zemuron) Confirm Administered Dose 50 mg .ROUTE .STK-MED ONE Stop: 08/17/18 08:58 Scopolamine (Transderm-Scop) 1.5 mg TOP ONETIME ONE Stop: 08/17/18 10:53 Last Admin: 08/17/18 10:57 Dose: 1.5 mg
[2018-08-17] MEDS ORDERED: Lactated Ringers 1,000 ML ONE (12:27)
[2018-08-17] MEDS ORDERED: Neostigmine Methylsulfate 1 MG/ML 5 ML Syringe ONE (12:35)
--- NOTE | 2018-08-17 12:59 | PCM.POSTAN ---
POST ANESTHESIA ASSESSMENT - MENTAL STATUS Mental Status: Alert, Oriented - VITAL SIGNS Pulse Rate: 74 SaO2: 100 Resp Rate: 11 Blood Pressure: 107/62 Temperature: 36.7 C - RESPIRATORY Respiratory Status: Respiratory Rate WNL, Airway Patent, O2 Saturation Stable, Supplemental Oxygen - CARDIOVASCULAR CV Status: Pulse Rate WNL, Blood Pressure Stable - GASTROINTESTINAL GI Status: No Symptoms - PAIN Pain Score: 0 - POST OP HYDRATION Hydration Status: Adequate & Stable
[2018-08-17] MEDS ORDERED: Haloperidol Lactate 5 MG/ML SDV IVPUSH ONE (13:00)
[2018-08-17] MEDS ORDERED: fentaNYL 100 MCG/2 ML SDV IVPUSH PRN (13:00)
[2018-08-17] MEDS ORDERED: HYDROmorphone 0.5 MG/0.5 ML Syringe IVPUSH PRN (13:00)
[2018-08-17] MEDS ORDERED: diphenhydrAMINE 50 MG/ML SDV IVPUSH PRN (13:00)
[2018-08-17] MEDS ORDERED: Acetaminophen/oxyCODONE 325-5 MG Tab PO PRN (13:28)
--- NOTE | 2018-08-17 13:32 | PCM.OPNOTE ---
- General Post-Op/Procedure Note Condition: Good Free Text/Narrative:: Intake & Output 08/16/18 08/17/18 08/17/18 22:59 06:59 14:59 Output Total 150 Balance -150 Surgery duration: 35 minutes Herb is a 23-year-old 1 para 1001 white female who is seen in outpatient surgery. After patient was appropriately consented she was taken to the operating room and placed in supine position on the operating table. She received 2 g of Ancef preoperatively and had sequential compression stockings in place for DVT prophylaxis. She is given general endotracheal anesthesia. She is placed in the dorsal lithotomy position and prepped and draped in usual fashion. An indwelling bladder catheter was placed. Left upper quadrant port site was because of the patient's history of previous umbilical hernia repair with mesh. Area overlying the strip on the left side was infiltrated with Marcaine 0.5% approximately 3-5 mL. Incision was made approximately 5 mm in length. There isplaced above the rib into the peritoneal cavity. Pneumoperitoneum was established using 3 L 2. 5 mm trochars and placed below the rib through the same skin incision. The scope was placed and pneumoperitoneum was found to be adequate and entrance into the peritoneal cavity was successful. Patient noted to have adhesions from the omentum up to the umbilicus. Some other adhesions involving the ovaries bilaterally and these were wispy in nature. The anterior and posterior cul-de-sac along with the uterus and fallopian tubes appeared normal. Adhesions and wispy adhesions involving the ovaries and uterus were taken down using a combination of sharp and blunt dissection and cautery. Per patient desire and because of repeated hemorrhagic appearing ovarian cysts despite being on hormonal suppression therapy decision was made to take the right ovary out. Patient wanted to retain the left ovary and fallopian tubes along with the uterus. Using an Enseal meso-ovarii vessels were cauterized and the ovary was freed up completely. It was placed into an Endo Catch bag and removed through the suprapubic port site. At this time the port sites had trochars removed from the suprapubic and right lower quadrant site. Pneumoperitoneum was reversed. Upper left abdominal port and removed. The fascia was closed in the suprapubic area with a short running suture of 0 Vicryl. All skin incisions were closed with subcuticular interrupted sutures of 3-0 Monocryl. The skin incisions were further approximated with Dermabond skin glue. The Mclaughlin catheter was removed from bladder. The patient was returned to supine position and awakened from general endotracheal anesthesia.
== END 2018-08-17 15:30 | disposition home or self-care (01) ==
LOC: JD.SDS 09:50
PROVIDERS: ATTEND Obstetrics & Gynecology
DX: N83.291 Other ovarian cyst, right side (principal); N73.6 Female pelvic peritoneal adhesions (postinfective); F31.9 Bipolar disorder, unspecified; F43.10 Post-traumatic stress disorder, unspecified; Z91.018 Allergy to other foods; Z91.048 Other nonmedicinal substance allergy status; Z87.891 Personal history of nicotine dependence; Z79.899 Other long term (current) drug therapy; Z98.890 Other specified postprocedural states
CPT/HCPCS: 36415; 58661; 80048; 81003; 81025; 85025; A9270; J0690; J1100; J2001; J2405; J2704; J2710; J3010; J3490; J7120; 00840; J1885; J2250

== ENCOUNTER 2019-07-01 08:59 | Emergency (ER) | payer BC ==
[2019-07-01] MEDS ORDERED: Sodium Chloride 0.9% 10 ML Syringe FLUSH PRN (09:21)
[2019-07-01] MEDS ORDERED: Ondansetron 4 MG/2 ML SDV IVPUSH ONE (09:24)
--- NOTE | 2019-07-01 09:30 | EDM.PDOC ---
ED HPI GENERAL MEDICAL PROBLEM - General Chief Complaint: [employer] REPAIR Problem Stated Complaint: 6 WEEKS PREG AND BLEEDING Time Seen by Provider: 07/01/19 09:08 Source of Information: Reports: Patient, RN Notes Reviewed History Limitations: Reports: No Limitations - History of Present Illness INITIAL COMMENTS - FREE TEXT/NARRATIVE: Patient is a 24-year-old female who presents to the ED for the evaluation of vaginal bleeding and . The patient notes that her last menstrual period was 05/24/2019. She is a G4, , she has had 2 previous miscarriages , and 1 of the miscarriages needed a D&C. 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 The patient states that she noticed some vaginal bleeding this morning when she got off work, this is not enough to make her have a pad present, but she states that she had a little bit of bleeding visible when she went to the bathroom. She is not experiencing any cramping or abdominal pain, nor did she feel any sort of gush of fluid sensation. Patient also denies any sort of urinary issues, she has not had any dysuria, urinary frequency or urgency, no fevers or chills, no vomiting or diarrhea. She states she is having a little bit of nausea as well. The patient notes that she has had prior abdominal surgeries, she has had a for her viable , she has had a hernia repair, and one ovary removed due to cysts. - Related Data Allergies Allergy/AdvReac Type Severity Reaction Status Date / Time [place] And Derivatives Allergy Anaphylactic Verified 07/01/19 09:11 Shock fruit Allergy Anaphylactic Uncoded 08/16/18 13:43 Shock metal Allergy Hives Uncoded 07/01/19 09:11 Home Meds: Home Meds lamoTRIgine [Lamictal] 50 mg PO BID 10/05/17 [History] Escitalopram [Lexapro] 25 mg PO BID 08/16/18 [History] [place] Carbonate 300 mg PO DAILY 08/16/18 [History] traZODone HCl [Trazodone HCl] 50 mg PO BEDTIME 08/16/18 [History] Past Medical History HEENT History: Reports: Impaired Vision Genitourinary History: Reports: UTI, Recurrent [employer]LE[employer]ASSIS REPAIR History: Reports: , Spontaneous , Other (See Below) : 4 Para: 1 (A 2, 2 miscarriage with one requiring D&C) Other [employer]LE[employer]ASS[employer] REPAIR History: ovarian cyst, pelvic pain, dyspareunia Musculoskeletal History: Reports: Fracture Other Musculoskeletal History: fx right arm and wrist Neurological History: Reports: Migraines Psychiatric History: Reports: Bipolar, Depression Other Psychiatric History: possibly bipolar, no official diagnosis - Past Surgical History HEENT Surgical History: Reports: Naso-Sinus Surgery Other HEENT Surgeries/Procedures: sinus surgery GI Surgical History: Reports: Hernia, Abdominal Female Surgical History: Reports: Section, Oophorectomy (for cysts on her R ovary) Social & Family History - Family History Family Medical History: Noncontributory - Tobacco Use Smoking Status *Q: Never Smoker - Caffeine Use Caffeine Use: Reports: None - Recreational Drug Use Recreational Drug Use: No - Living Situation & Occupation Living situation: Reports: Single Occupation: Employed ED ROS GENERAL - Review of Systems Review Of Systems: See Below Constitutional: Denies: Fever, Chills Respiratory: Denies: Shortness of Breath, Cough Cardiovascular: Denies: Chest Pain GI/Abdominal: Reports: Nausea. Denies: Abdominal Pain, Constipation, Diarrhea, Vomiting : Reports: Other (minimal vaginal bleeding, no clots). Denies: Discharge, Dysuria, Frequency, Pain, Urgency Neurological: Denies: Dizziness, Syncope ED EXAM - Physical Exam Exam: See Below Exam Limited By: No Limitations General Appearance: Alert, WD/WN, No Apparent Distress, Anxious Eye Exam: Bilateral Eye: EOMI, Normal Inspection, PERRL Throat/Mouth: Normal Inspection, Normal Lips, Normal Teeth, Normal Gums, Normal Oropharynx, Normal Voice, No Airway Compromise Head: Atraumatic, Normocephalic Neck: Normal Inspection Respiratory/Chest: No Respiratory Distress, Lungs Clear, Normal Breath Sounds, No Accessory Muscle Use, Chest Non-Tender Cardiovascular: Normal Peripheral Pulses, Regular Rate, Rhythm, No Murmur GI/Abdominal Exam: Normal Bowel Sounds, Soft, Non-Tender, No Distention, No Mass (Female) Exam: Other (deferred ) Heart Tones: Not Winn Movement: Not Appreciated Neurological: Alert, Oriented, Normal Cognition, No Motor/Sensory Deficits Psychiatric: Normal Affect, Normal Mood, Anxious (pt states that she is anxious d/t past miscarriages) Skin Exam: Warm, Dry, Intact, Normal Color, No Rash Course - Vital Signs Last Recorded V/S: Last Vital Signs Temp 97.9 F 07/01/19 09:06 Pulse 86 07/01/19 09:06 Resp 19 07/01/19 09:06 BP 123/76 07/01/19 09:06 Pulse Ox 100 07/01/19 09:06 - Orders/Labs/Meds Orders: Active Orders 24 hr Category Date Time Status Peripheral IV Care [RC] . DIRECTED Care 07/01/19 09:23 Active Sodium Chloride 0.9% [Saline Flush] Med 07/01/19 09:21 Active 10 ml FLUSH ASDIRECTED PRN Peripheral IV Insertion Adult [OM.PC] Stat Oth 07/01/19 09:21 Ordered Medication Orders Sodium Chloride (Saline Flush) 10 ml FLUSH ASDIRECTED PRN PRN Reason: Keep Vein Open Last Admin: 07/01/19 10:17 Dose: 10 ml Labs: Laboratory Tests 07/01/19 07/01/19 07/01/19 Range/Units 09:29 09:29 09:29 WBC 4.30 (3.98-10.04) K/mm3 RBC 4.89 (3.98-5.22) M/mm3 Hgb 13.9 (11.2-15.7) gm/dl Hct 41.8 (34.1-44.9) % MCV 85.5 D (79.4-94.8) fl MCH 28.4 (25.6-32.2) pg MCHC 33.3 (32.2-35.5) g/dl RDW Std Deviation 37.6 (36.4-46.3) fL Plt Count 329 (182-369) K/mm3 MPV 8.5 L (9.4-12.3) fl Neut % (Auto) 54.4 (34.0-71.1) % Lymph % (Auto) 37.2 (19.3-51.7) % [place] % (Auto) 7.7 (4.7-12.5) % Eos % (Auto) 0.2 L (0.7-5.8) Baso % (Auto) 0.5 (0.1-1.2) % Neut # (Auto) 2.34 (1.56-6.13) K/mm3 Lymph # (Auto) 1.60 (1.18-3.74) K/mm3 [place] # (Auto) 0.33 (0.24-0.36) K/mm3 Eos # (Auto) 0.01 L (0.04-0.36) K/mm3 Baso # (Auto) 0.02 (0.01-0.08) K/mm3 HCG, Quant 295.0 mIU/mL Urine Color (Yellow) Urine Appearance (Clear) Urine pH (5.0-8.0) Ur Specific [place] (1.005-1.030) Urine Protein (Negative) Urine Glucose (UA) (Negative) Urine Ketones (Negative) Urine Occult Blood (Negative) Urine Nitrite (Negative) Urine Bilirubin (Negative) Urine Urobilinogen (0.2-1.0) Ur Leukocyte Esterase (Negative) Urine RBC (0-5) /hpf Urine WBC (0-5) /hpf Ur Epithelial Cells (0-5) /hpf Urine Bacteria (FEW) /hpf Urine Mucus (FEW) /hpf Blood Type A POSITIVE 07/01/19 Range/Units 10:19 WBC (3.98-10.04) K/mm3 RBC (3.98-5.22) M/mm3 Hgb (11.2-15.7) gm/dl Hct (34.1-44.9) % MCV (79.4-94.8) fl MCH (25.6-32.2) pg MCHC (32.2-35.5) g/dl RDW Std Deviation (36.4-46.3) fL Plt Count (182-369) K/mm3 MPV (9.4-12.3) fl Neut % (Auto) (34.0-71.1) % Lymph % (Auto) (19.3-51.7) % [place] % (Auto) (4.7-12.5) % Eos % (Auto) (0.7-5.8) Baso % (Auto) (0.1-1.2) % Neut # (Auto) (1.56-6.13) K/mm3 Lymph # (Auto) (1.18-3.74) K/mm3 [place] # (Auto) (0.24-0.36) K/mm3 Eos # (Auto) (0.04-0.36) K/mm3 Baso # (Auto) (0.01-0.08) K/mm3 HCG, Quant mIU/mL Urine Color Yellow (Yellow) Urine Appearance Clear (Clear) Urine pH 6.0 (5.0-8.0) Ur Specific [place] > or = 1.030 (1.005-1.030) Urine Protein Negative (Negative) Urine Glucose (UA) Negative (Negative) Urine Ketones Negative (Negative) Urine Occult Blood 2+ H (Negative) Urine Nitrite Negative (Negative) Urine Bilirubin Negative (Negative) Urine Urobilinogen 0.2 (0.2-1.0) Ur Leukocyte Esterase Trace H (Negative) Urine RBC 0-5 (0-5) /hpf Urine WBC 0-5 (0-5) /hpf Ur Epithelial Cells 5-10 H (0-5) /hpf Urine Bacteria Moderate H (FEW) /hpf Urine Mucus Moderate H (FEW) /hpf Blood Type Meds: Medications Generic Name Dose Route Start Last Admin Trade Name Freq PRN Reason Stop Dose Admin Sodium Chloride 10 ml 07/01/19 09:21 07/01/19 10:17 Saline Flush FLUSH 10 ml ASDIRECTED PRN Administration Keep Vein Open Discontinued Medications Generic Name Dose Route Start Last Admin Trade Name Freq PRN Reason Stop Dose Admin Ondansetron HCl 4 mg 07/01/19 09:24 07/01/19 10:17 Zofran IVPUSH 07/01/19 09:25 4 mg ONETIME ONE Administration - Re-Assessments/Exams Free Text/Narrative Re-Assessment/Exam: 07/01/19 09:37 Patient presents to the ED for vaginal bleeding in . I did order transvaginal US, CBC, HCG Qualitative and Quant, ABO/Rh, UA, IV to be placed with 4mg IV zofran for initial management. 07/01/19 11:01 Labs are back, and demonstrate an hCG of 295, other labs essentially within normal limits. Patient is A positive. Ultrasound report is still pending at this time. UA demonstrates no obvious infection, but is suggestive of contamination. Since she is not having any symptoms, it is likely that it is more of just a contamination, will not be sent for culture at this time. 07/01/19 11:13 Ultrasound is done, there is no intrauterine gestational sac double. She does have a positive hCG, so it could represent a too early to visualize versus nonvisualized ectopic . There was simple fluid noted within the cul-de-sac believed to be physiologic. And there is a 2.4 cm complicated abnormality within the left ovary most likely representing a collapsing hemorrhagic cyst. I did discuss these findings with Dr. Moreno, and he recommends discharging the patient home with general recommendations and have her follow-up with [employer]PAIR next week for recheck, and a repeat hCG, with strict return precautions. Departure - Departure Time of Disposition: 11:15 Disposition: Home, Self-Care 01 Condition: Fair Clinical Impression: Vaginal bleeding during , Threatened in early - Discharge Information *PRESCRIPTION DRUG MONITORING PROGRAM REVIEWED*: No *COPY OF PRESCRIPTION DRUG MONITORING REPORT IN PATIENT TERESA: No Instructions: Activity Restriction During , Vaginal Bleeding During , First Trimester, [id number] Referrals: Johnathon Caballero MD [Primary Care Provider] - Forms: ED Department Discharge, ED Return to Work/School Form Additional Instructions: You were evaluated in the ER today regarding your vaginal bleeding in . You did have some labs drawn, and these were within normal limits, your hCG level was 295 , your blood type is A+. Your ultrasound demonstrated no visible intrauterine gestational at this time, however this likely could be a that is too early to visualize due to the hCG level being only 295. You also had a 2.4 cm complicated abnormality within the left ovary, which is consistent with a collapsing hemorrhagic cyst. You were given a copy of your ultrasound results to discuss with your [employer] REPAIR provider Recommend that you do not lift anything heavier than a gallon of milk (5 lbs), do not engage in sexual activities, try to get as much pelvic rest as possible for the next few days. Please try not to exert yourself, rest and relax, and take it easy. If you are bleeding through more than 1-2 maxi pads every couple hours, this would be cause for concern to return to the ER for immediate management. Please follow up with your SUPER[employer] REPAIR, Dr. Reynolds sometime at the end of this week or the beginning of next week for repeat hCG testing, and repeat ultrasound. Please return to the ED at any time if your symptoms change or worsen. Sepsis Event Note - Evaluation Sepsis Screening Result: No Definite Risk - Focused Exam Vital Signs: Vital Signs Temp Pulse Resp BP Pulse Ox 07/01/19 09:06 97.9 F 86 19 123/76 100 Date Exam was Performed: 07/01/19 Time Exam was Performed: 11:29 - My Orders Last 24 Hours: My Active Orders 07/01/19 09:21 Sodium Chloride 0.9% [Saline Flush] 10 ml FLUSH ASDIRECTED PRN Peripheral IV Insertion Adult [OM.PC] Stat 07/01/19 09:23 Peripheral IV Care [RC] . DIRECTED - Assessment/Plan Last 24 Hours: My Active Orders 07/01/19 09:21 Sodium Chloride 0.9% [Saline Flush] 10 ml FLUSH ASDIRECTED PRN Peripheral IV Insertion Adult [OM.PC] Stat 07/01/19 09:23 Peripheral IV Care [RC] . DIRECTED
--- NOTE | 2019-07-01 11:10 | US ---
First trimester obstetrical ultrasound: Multiple real-time images were obtained transvaginally. Comparison: Previous imaging for current not available. Mild amount of fluid is seen within the cul-de-sac. No intrauterine gestational sac is noted. Right ovary is not visualized. Left ovary is seen and shows a small complicated abnormality measuring 2.4 cm most likely due to collapsing hemorrhagic cyst. No myometrial abnormality is seen. Endometrial thickness is 1.0 cm. Impression: 1. No intrauterine gestational sac is seen. If patient has positive test, findings could represent miscarriage, too early to visualize, or less likely nonvisualized ectopic . 2. Simple fluid within the cul-de-sac believed to be physiologic. 3. 2.4 cm complicated abnormality within the left ovary most likely representing collapsing hemorrhagic cyst. Diagnostic code #2 This report was dictated in [place] Standard Time
== END 2019-07-01 11:35 | disposition home or self-care (01) ==
LOC: JD.ED 08:59
DX: O20.0 Threatened abortion (principal); O99.341 Other mental disorders complicating pregnancy, first trimester; F41.9 Anxiety disorder, unspecified; F32.9 Major depressive disorder, single episode, unspecified; Z79.899 Other long term (current) drug therapy; Z91.018 Allergy to other foods; Z91.048 Other nonmedicinal substance allergy status; Z3A.01 Less than 8 weeks gestation of pregnancy
CPT/HCPCS: 36415; 76817; 81001; 84702; 85025; 86900; 86901; 96374; 99284; J2405; 99283

== ENCOUNTER 2019-07-03 06:03 | Emergency (ER) | payer BC ==
[2019-07-03] MEDS ORDERED: Sodium Chloride 0.9% 1,000 ML IV STA (06:22)
[2019-07-03] MEDS ORDERED: Sodium Chloride 0.9% 10 ML Syringe FLUSH PRN (06:22)
[2019-07-03] MEDS ORDERED: HYDROmorphone 1 MG/ML Syringe IVPUSH ONE (06:23)
--- NOTE | 2019-07-03 06:46 | EDM.PDOC ---
ED HPI GENERAL MEDICAL PROBLEM - General Source of Information: Reports: Patient History Limitations: Reports: No Limitations - History of Present Illness Onset: Gradual Duration: Day(s): Location: Reports: Abdomen, Pelvis Quality: Reports: Sharp Severity: Severe Improves with: Reports: None Worsens with: Reports: None Associated Symptoms: Reports: No Other Symptoms Abdomen Pain Score (Numeric/FACES): 7 <Montez Kelly - Last Filed: 07/03/19 08:22> <Bipin Moreno - Last Filed: 07/03/19 09:01> - General Chief Complaint: RECREATION MANAGER Problem Stated Complaint: NEWLY CRAMPING & BLEEDING Time Seen by Provider: 07/03/19 06:11 - History of Present Illness INITIAL COMMENTS - FREE TEXT/NARRATIVE: The patient presents with worsening pelvic cramping and bleeding. She is AB2 at about 6 weeks gestation. She was seen here 2 days ago for the same and she had labs and her quant HCG was 295 and her US shows no intrauterine gestational sac is seen. If patient has positive test, findings could represent miscarriage, too early to visualize or less likely nonvisualized ectopic . Simple fluid within the cul-de-sac believed to be physiologic. 2.4 cm complicated abnormality within the left ovary most likely representing collapsing hemorrhagic cyst. She has more pain and bleeding now. She has no fever, chills, cough, chest pain or shortness of breath. (Montez Kelly) - Related Data Allergies Allergy/AdvReac Type Severity Reaction Status Date / Time [place] And Derivatives Allergy Anaphylactic Verified 07/03/19 06:14 Shock fruit Allergy Anaphylactic Uncoded 08/16/18 13:43 Shock metal Allergy Hives Uncoded 07/01/19 09:11 Home Meds: Home Meds lamoTRIgine [Lamictal] 50 mg PO BID 10/05/17 [History] Escitalopram [Lexapro] 25 mg PO BID 08/16/18 [History] [facility] Carbonate 300 mg PO DAILY 08/16/18 [History] traZODone HCl [Trazodone HCl] 50 mg PO BEDTIME 08/16/18 [History] Past Medical History HEENT History: Reports: Impaired Vision Cardiovascular History: Reports: None Respiratory History: Reports: None Genitourinary History: Reports: UTI, Recurrent RECREATION MANAGER History: Reports: , Spontaneous , Other (See Below) Other RECREATION MANAGER History: ovarian cyst, pelvic pain, dyspareunia Musculoskeletal History: Reports: Fracture Other Musculoskeletal History: fx right arm and wrist Neurological History: Reports: Migraines Psychiatric History: Reports: Bipolar, Depression Other Psychiatric History: possibly bipolar, no official diagnosis Endocrine/Metabolic History: Reports: None Hematologic History: Reports: None Immunologic History: Reports: None Oncologic (Cancer) History: Reports: None Dermatologic History: Reports: None - Past Surgical History Head Surgeries/Procedures: Reports: None HEENT Surgical History: Reports: Naso-Sinus Surgery Other HEENT Surgeries/Procedures: sinus surgery Cardiovascular Surgical History: Reports: None Respiratory Surgical History: Reports: None GI Surgical History: Reports: Hernia, Abdominal Female Surgical History: Reports: Section, Oophorectomy Endocrine Surgical History: Reports: None Oncologic Surgical History: Reports: None Dermatological Surgical History: Reports: None <Montez Kelly Last Filed: 07/03/19 08:22> Social & Family History - Family History Family Medical History: Noncontributory - Tobacco Use Smoking Status *Q: Never Smoker - Caffeine Use Caffeine Use: Reports: None - Recreational Drug Use Recreational Drug Use: No - Living Situation & Occupation Living situation: Reports: Single Occupation: Employed <Montez Kelly Filed: 07/03/19 08:22> ED ROS GENERAL - Review of Systems Review Of Systems: See Below Constitutional: Reports: No Symptoms HEENT: Reports: No Symptoms Respiratory: Reports: No Symptoms Cardiovascular: Reports: No Symptoms Endocrine: Reports: No Symptoms GI/Abdominal: Reports: Abdominal Pain. Denies: Nausea, Vomiting : Reports: Other (Pelvic pain) Musculoskeletal: Reports: No Symptoms Skin: Reports: No Symptoms <Montez Kelly Last Filed: 07/03/19 08:22> ED EXAM - Physical Exam Exam: See Below Exam Limited By: No Limitations General Appearance: Alert, Mild Distress Ears: Normal External Exam Nose: Normal Inspection Head: Atraumatic, Normocephalic Neck: Normal Inspection Respiratory/Chest: No Respiratory Distress, Lungs Clear, Normal Breath Sounds Cardiovascular: Regular Rate, Rhythm, No Edema, No Murmur GI/Abdominal Exam: Soft, No Organomegaly, No Mass, Tender (Moderate to severe pain upon palpation) Extremities: Normal Inspection Neurological: Alert, Oriented, No Motor/Sensory Deficits <JagfrankMontez Simon - Last Filed: 07/03/19 08:22> Course <Montez Kelly - Last Filed: 07/03/19 08:22> <TiffanieBipin argueta Christi - Last Filed: 07/03/19 09:01> - Vital Signs Last Recorded V/S: Last Vital Signs Temp 36.7 C 07/03/19 06:10 Pulse 62 07/03/19 06:10 Resp 19 07/03/19 06:10 BP 102/67 07/03/19 06:10 Pulse Ox 96 07/03/19 06:10 - Orders/Labs/Meds Orders: Active Orders 24 hr Category Date Time Status Peripheral IV Care [RC] . DIRECTED Care 07/03/19 06:22 Active PROGESTERONE [CHEM] Stat Lab 07/03/19 08:56 Ordered Sodium Chloride 0.9% [Saline Flush] Med 07/03/19 06:22 Active 10 ml FLUSH ASDIRECTED PRN Peripheral IV Insertion Adult [OM.PC] Stat Oth 07/03/19 06:22 Ordered Medication Orders Sodium Chloride (Saline Flush) 10 ml FLUSH ASDIRECTED PRN PRN Reason: Keep Vein Open Last Admin: 07/03/19 06:30 Dose: 10 ml Labs: Laboratory Tests 07/03/19 07/03/19 07/03/19 Range/Units 06:25 06:25 06:25 WBC 4.13 (3.98-10.04) K/mm3 RBC 4.81 (3.98-5.22) M/mm3 Hgb 13.6 (11.2-15.7) gm/dl Hct 41.2 (34.1-44.9) % MCV 85.7 (79.4-94.8) fl MCH 28.3 (25.6-32.2) pg MCHC 33.0 (32.2-35.5) g/dl RDW Std Deviation 37.6 (36.4-46.3) fL Plt Count 312 (182-369) K/mm3 MPV 8.9 L (9.4-12.3) fl Neut % (Auto) 49.9 (34.0-71.1) % Lymph % (Auto) 39.2 (19.3-51.7) % O'Brien % (Auto) 9.2 (4.7-12.5) % Eos % (Auto) 1.0 (0.7-5.8) Baso % (Auto) 0.5 (0.1-1.2) % Neut # (Auto) 2.06 (1.56-6.13) K/mm3 Lymph # (Auto) 1.62 (1.18-3.74) K/mm3 O'Brien # (Auto) 0.38 H (0.24-0.36) K/mm3 Eos # (Auto) 0.04 (0.04-0.36) K/mm3 Baso # (Auto) 0.02 (0.01-0.08) K/mm3 Sodium 137 (136-145) mEq/L Potassium 3.9 (3.5-5.1) mEq/L Chloride 101 (98-107) mEq/L Carbon Dioxide 27 (21-32) mEq/L Anion Gap 12.9 (5-15) BUN 10 (7-18) mg/dL Creatinine 0.9 (0.55-1.02) mg/dL Est Cr Clr Drug Dosing 83.95 mL/min Estimated GFR (MDRD) > 60 (>60) mL/min BUN/Creatinine Ratio 11.1 L (14-18) Glucose 89 (74-106) mg/dL Calcium 9.2 (8.5-10.1) mg/dL Total Bilirubin 0.4 (0.2-1.0) mg/dL AST 13 L (15-37) U/L ALT 24 (14-59) U/L Alkaline Phosphatase 58 (46-116) U/L Total Protein 7.0 (6.4-8.2) g/dl Albumin 3.8 (3.4-5.0) g/dl Globulin 3.2 gm/dL Albumin/Globulin Ratio 1.2 (1-2) HCG, Quant 555.0 mIU/mL Blood Type 07/03/19 Range/Units 06:25 WBC (3.98-10.04) K/mm3 RBC (3.98-5.22) M/mm3 Hgb (11.2-15.7) gm/dl Hct (34.1-44.9) % MCV (79.4-94.8) fl MCH (25.6-32.2) pg MCHC (32.2-35.5) g/dl RDW Std Deviation (36.4-46.3) fL Plt Count (182-369) K/mm3 MPV (9.4-12.3) fl Neut % (Auto) (34.0-71.1) % Lymph % (Auto) (19.3-51.7) % O'Brien % (Auto) (4.7-12.5) % Eos % (Auto) (0.7-5.8) Baso % (Auto) (0.1-1.2) % Neut # (Auto) (1.56-6.13) K/mm3 Lymph # (Auto) (1.18-3.74) K/mm3 O'Brien # (Auto) (0.24-0.36) K/mm3 Eos # (Auto) (0.04-0.36) K/mm3 Baso # (Auto) (0.01-0.08) K/mm3 Sodium (136-145) mEq/L Potassium (3.5-5.1) mEq/L Chloride (98-107) mEq/L Carbon Dioxide (21-32) mEq/L Anion Gap (5-15) BUN (7-18) mg/dL Creatinine (0.55-1.02) mg/dL Est Cr Clr Drug Dosing mL/min Estimated GFR (MDRD) (>60) mL/min BUN/Creatinine Ratio (14-18) Glucose (74-106) mg/dL Calcium (8.5-10.1) mg/dL Total Bilirubin (0.2-1.0) mg/dL AST (15-37) U/L ALT (14-59) U/L Alkaline Phosphatase (46-116) U/L Total Protein (6.4-8.2) g/dl Albumin (3.4-5.0) g/dl Globulin gm/dL Albumin/Globulin Ratio (1-2) HCG, Quant mIU/mL Blood Type A POSITIVE Meds: Medications Generic Name Dose Route Start Last Admin Trade Name Freq PRN Reason Stop Dose Admin Sodium Chloride 10 ml 07/03/19 06:22 07/03/19 06:30 Saline Flush FLUSH 10 ml ASDIRECTED PRN Administration Keep Vein Open Discontinued Medications Generic Name Dose Route Start Last Admin Trade Name Freq PRN Reason Stop Dose Admin Hydromorphone HCl 1 mg 07/03/19 06:23 07/03/19 06:29 Dilaudid IVPUSH 07/03/19 06:24 1 mg ONETIME ONE Administration Hydromorphone HCl 0.5 mg 07/03/19 08:24 Dilaudid IVPUSH 07/03/19 08:25 ONETIME ONE Sodium Chloride 1,000 mls @ 1,000 mls/hr 07/03/19 06:22 07/03/19 06:29 Normal Saline IV 07/03/19 07:21 1,000 mls/hr .BOLUS STA Administration - Re-Assessments/Exams Free Text/Narrative Re-Assessment/Exam: 07/03/19 07:00 I ordered an IV NS 1L bolus, dilaudid 1mg IV, labs, and transvaginal US. 07/03/19 08:09 Her CBC and CMP look good. Her Hcg has gone up to 555 from 295 the other day. I am waiting for the US. 07/03/19 08:22 The US shows free fluid within the pelvis. Nonspecific small cystic area within the endometrial cavity. 1.8cm hypoechoic area within the left ovary most likely due to collapsing hemorrhagic cyst. 07/03/19 08:[address] Reynolds and we both agree it is not clear if she is of having an ectopic. Dr Reynolds or one of his partners will come see the patient. She is having more pain so I ordered dilaudid 0.5mg IV. It is change of shift. Dr Moreno to take over. (Montez Kelly) 07/03/19 08:57 Marcelino has seen the patient in consultation. At this time he agrees with a conservative approach. Still be a very early is particularly in view that the hCG quantitative has doubled in the last 2 days. There is slightly increased fluid in the cul-de-sac. No evidence of a intrauterine gestation. He was given her information to call the clinic if any further problems occur. She will otherwise follow up in the clinic on July 05 in the morning somewhere between 9 and 10:00 and she is to make her own appointment. Return to the ED if she soaks a pad per hour for 2 consecutive hours. (Bipin Moreno) Departure <Montez Kelly - Last Filed: 07/03/19 08:22> - Departure Time of Disposition: 08:58 Condition: Fair - Discharge Information *PRESCRIPTION DRUG MONITORING PROGRAM REVIEWED*: Not Applicable *COPY OF PRESCRIPTION DRUG MONITORING REPORT IN PATIENT TERESA: Not Applicable <Bipin Moreno - Last Filed: 07/03/19 09:01> - Departure Disposition: Home, Self-Care 01 Clinical Impression: First-trimester bleeding - Discharge Information Instructions: Vaginal Bleeding During , First Trimester Referrals: Johnathon Caballero MD [Primary Care Provider] - Forms: ED Department Discharge Additional Instructions: Evaluation the emergency room once again this morning in regards to persistent spotting per vagina in early Again the ultrasound does not confirm any signs of an intrauterine . It is felt that it is too early to show up at this time. Your quantitative beta-hCG did double in the last 2 days which is appropriate. Just we still have a viable . The concern is whether or not the is in the appropriate position inside the uterus and is just not yet visible or whether there could be a in one of the fallopian tubes. This time it is just simply too early to tell. Consultation with Dr. Reynolds from the department of RECREATION MANAGER has been carried out in the ED and he wishes to see you in follow-up on July 05 somewhat between 9 and 10:00 in the morning. Please call [phone] to arrange an appointment. He will course her to return to the ED immediately if you start to bleed heavily per vagina enough to soak a pad per hour for 2 consecutive hours or develops severe lower abdominal cramping pain. Otherwise taking life quite easy at this point time in terms of very minimal lifting, pushing, pulling for the next 3-5 days. Sepsis Event Note - Evaluation Sepsis Screening Result: No Definite Risk - Focused Exam Date Exam was Performed: 07/03/19 Time Exam was Performed: 08:22 <Montez Kelly - Last Filed: 07/03/19 08:22> - Focused Exam Date Exam was Performed: 07/03/19 Time Exam was Performed: 08:57 <Bipin Moreno - Last Filed: 07/03/19 09:01> - Focused Exam Vital Signs: Vital Signs Temp Pulse Resp BP Pulse Ox 07/03/19 06:10 36.7 C 62 19 102/67 96 - My Orders Last 24 Hours: My Active Orders 07/03/19 08:56 PROGESTERONE [CHEM] Stat - Assessment/Plan Last 24 Hours: My Active Orders 07/03/19 08:56 PROGESTERONE [CHEM] Stat
--- NOTE | 2019-07-03 08:21 | US ---
First trimester obstetrical ultrasound: Multiple real-time images were obtained transvaginally. Comparison: Previous first trimester obstetrical ultrasound of 07/01/19. No intrauterine gestational sac is seen. Follicles are seen within the left ovary. Hypoechoic area measuring 1.8 cm is seen within the left ovary most likely due to collapsing hemorrhagic cyst. Mild amount of free fluid is seen. Minimal nonspecific cystic area is noted within the endometrial cavity measuring 2 mm. Impression: 1. Free fluid within the pelvis. 2. Nonspecific small cystic area within the endometrial cavity. 3. 1.8 cm hypoechoic area within the left ovary most likely due to collapsing hemorrhagic cyst. Diagnostic code #3 This report was dictated in [place] Standard Time
[2019-07-03] MEDS ORDERED: HYDROmorphone 0.5 MG/0.5 ML Syringe IVPUSH ONE (08:24)
--- NOTE | 2019-07-03 20:46 | PCM.SN ---
- Free Text/Narrative Note: Emergency room consultation?07/03/2019: Herb is a 24-year-old 4 para 1021 who is seen in emergency room for complaints of bleeding and cramping. She is in the emergency room 2 days ago with complaints of bleeding in early . She reports her LMP to be 05/24/2019. She has positive symptoms of nausea and breast tenderness. Her pain is located midline and is somewhat crampy in nature. She reports it to be 4 on a scale 10 with reporting that her uterine cramps with periods can be as high as 7 on a scale of 10. She reports it feels somewhat like her menstrual cramps. Patient had a positive home test and on on 07/01/2019 she had a serum quantitative beta hCG of 295.0 mU/mL. She was evaluated with an ultrasound which showed nothing within the uterus. Possibly a small ovarian cyst on the left side. Some free fluid which is felt to be physiologic and the posterior cul-de-sac. Patient was diagnosed as early possible miscarriage, cannot entirely rule out ectopic . Today the patient began having more severe cramps and a slight increase in her bleeding. Her evaluation at this time shows her to be in more pain than she was before. Serum quantitative beta hCG was 555 mg/mL which is consistent with normal doubling. She continues to have symptoms. On ultrasound she is noted to have a small 1 cm radiolucent area within the endometrial cavity. No pole, cardiac activity or gestational sac is noted. Left ovary remains essentially unchanged. There is a slightly increased amount of what appears to be physiologic fluid in the posterior cul-de-sac. Her evaluation today per ER doc shows increased discomfort. Pelvic exam was not performed. LEARNING CONSULTANT history 4 para 1021 . Patient has had 1 spontaneous , one elective termination done medically and one full-term delivered by section. That baby had gastroschisis and was delivered in [place] because of required immediate postdelivery surgery. Patient does report that she 's had chlamydia in the past. She underwent a right oophorectomy early in 2018 for a right ovarian cyst. She had lysis of pelvic adhesions at that same time. Past surgical history: 1. TNA 2. 3. Umbilical hernia repair with mesh 4. Right oophorectomy via laparoscopy for ovarian cyst. Past medical history: 1. Bipolar disorder on meds 2. Spontaneous . 3. Medical elective . Medications: 1. Lamictal 2. Trazodone when necessary Family history: Mother is alive to breast cancer with brain tumor age 39. Father is alive and well with increased cholesterol. Patient has 5 brothers 1 with glaucoma and some with anxiety. 3 sisters who are alive but one with polycystic ovarian syndrome, one with pressure and 1 with endometriosis. No anesthesia, bleeding, blood clotting problems noted in the family. Social history: Patient lives in [place]. 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 She does not use any significant most alcohol, drugs or tobacco. She is single but has a steady boyfriend. Review of systems: In general patient has complaints as outlined in history of present illness.. Skin: Negative Lungs: No infectious symptoms or shortness of breath Cardiovascular: No chest pain or exercise intolerance Breasts: No lumps, changes in size, pain, dimpling, discharge or axillary or supraclavicular concerns. GI: Negative : See history of present illness. Musculoskeletal: Negative Neurological: Negative In general the patient is well-developed, well-nourished, pleasant female of stated age in no acute distress. Vital signs are stable. Patient is afebrile. Skin is warm dry without lesions. HEENT, neck and back within normal limits. Lungs are clear with good breath sounds in all lung quinones. Cardiovascular exam shows regular and rhythm without murmurs. Abdomen is flat, soft, without masses or organomegaly. She has some tenderness in the mid lower abdomen. No adnexal abnormalities noted on exam. Bone tenderness or guarding noted. Positive bowel sounds are noted. No inguinal lymphadenopathy or hernias are noted. Genital per bimanual shows normal external genitalia, BUS, pubic hair pattern. There is normal support and estrogenization in the vagina. There is a small amount of blood on the glove with digital exam. Uterus is small, anterior, freely mobile, without parametrial induration or adnexal abnormalities. No adnexal masses are noted no adnexal tenderness is noted. Posterior cul-de-sac appears to be without discomfort. Extremities and neurological exam are grossly within normal limits. Laboratory testing was within normal limits otherwise including a CBC and CMP. Her hemoglobin is 13.6. Assessment: 1. The Clinical, laboratory and radiologic findings show what appears to be a probable early intrauterine with bleeding. Cannot entirely rule out early loss. Cannot totally rule out ectopic . Patient does have some risk for ectopic because of history of pelvic adhesions and Chlamydia infection. Her pain is very manageable and she is desiring conservative management possible. Plan: 1. Ectopic precautions given to the patient 2. To have immediately available to her transport to the hospital if she becomes ill. 3. Return to clinic in 2 days for follow-up serum quantitative beta hCG and follow-up transvaginal ultrasound. 4. Patient is to call for any ectopic symptoms. These are reviewed in detail. 5. We'll obtain a serum progesterone level today
== END 2019-07-03 09:15 | disposition home or self-care (01) ==
LOC: JD.ED 06:03
DX: O20.9 Hemorrhage in early pregnancy, unspecified (principal); O99.341 Other mental disorders complicating pregnancy, first trimester; F32.9 Major depressive disorder, single episode, unspecified; Z3A.01 Less than 8 weeks gestation of pregnancy; Z91.018 Allergy to other foods; Z91.09 Other allergy status, other than to drugs and biological substances; Z79.899 Other long term (current) drug therapy
CPT/HCPCS: 36415; 76817; 80053; 84144; 84702; 85025; 86900; 86901; 96361; 96374; 99285; J1170; J7030; 99283

== ENCOUNTER 2019-07-05 17:50 | Emergency (ER) | payer BC ==
--- NOTE | 2019-07-05 18:16 | EDM.PDOC ---
ED HPI GENERAL MEDICAL PROBLEM - General Chief Complaint: Genitourinary Problem Stated Complaint: BLEEDING NOT BETTER UNKNOWN WEEKS PREG Time Seen by Provider: 07/05/19 18:10 - History of Present Illness INITIAL COMMENTS - FREE TEXT/NARRATIVE: Patient is unfortunate 24-year-old female who presents emergency Department today with complaint of vaginal bleeding. Patient reports that she is approximately 6 weeks IUP based off her dates and she's been having vaginal bleeding for the last 4 days. Patient also complains of abdominal cramping in the right lower quadrant, patient is been seen by her OB Dr. Rodolfo was seen this morning had a transvaginal ultrasound and she was unable to see anything on the ultrasound and gave patient strict return precautions should she have increasing pain or bleeding. Patient reports pain is progressively worse and so she presented emergency Department today for evaluation. She reports her quantitative hCG was "840 something " she is a A2 LMP 05/24/19 6 weeks by dates Right Lower Abdominal Pain Score (Numeric/FACES): 8 - Related Data Allergies Allergy/AdvReac Type Severity Reaction Status Date / Time [place] And Derivatives Allergy Anaphylactic Verified 07/03/19 06:14 Shock fruit Allergy Anaphylactic Uncoded 08/16/18 13:43 Shock metal Allergy Hives Uncoded 07/01/19 09:11 Home Meds: Home Meds lamoTRIgine [Lamictal] 50 mg PO BID 10/05/17 [History] Past Medical History HEENT History: Reports: Impaired Vision Cardiovascular History: Reports: None Respiratory History: Reports: None Genitourinary History: Reports: UTI, Recurrent 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: Reports: , Spontaneous , Other (See Below) Other 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: ovarian cyst, pelvic pain, dyspareunia Musculoskeletal History: Reports: Fracture Other Musculoskeletal History: fx right arm and wrist Neurological History: Reports: Migraines Psychiatric History: Reports: Bipolar, Depression Other Psychiatric History: possibly bipolar, no official diagnosis Endocrine/Metabolic History: Reports: None Hematologic History: Reports: None Immunologic History: Reports: None Oncologic (Cancer) History: Reports: None Dermatologic History: Reports: None - Past Surgical History Head Surgeries/Procedures: Reports: None HEENT Surgical History: Reports: Naso-Sinus Surgery Other HEENT Surgeries/Procedures: sinus surgery Cardiovascular Surgical History: Reports: None Respiratory Surgical History: Reports: None GI Surgical History: Reports: Hernia, Abdominal Female Surgical History: Reports: Section, Oophorectomy Endocrine Surgical History: Reports: None Oncologic Surgical History: Reports: None Dermatological Surgical History: Reports: None Social & Family History - Family History Family Medical History: Noncontributory - Caffeine Use Caffeine Use: Reports: None - Living Situation & Occupation Living situation: Reports: Single Occupation: Employed ED ROS GENERAL - Review of Systems Review Of Systems: See Below Constitutional: Denies: Fever, Chills GI/Abdominal: Reports: Abdominal Pain : Reports: Other (vaginal bleeding) ED EXAM, GI/ABD - Physical Exam Exam: See Below Exam Limited By: No Limitations General Appearance: Alert, Anxious, Moderate Distress Head: Atraumatic, Normocephalic Neck: Normal Inspection, Supple, Non-Tender, Full Range of Motion Respiratory/Chest: No Respiratory Distress, Lungs Clear, Normal Breath Sounds, No Accessory Muscle Use, Chest Non-Tender Cardiovascular: Normal Peripheral Pulses, Regular Rate, Rhythm, No Edema, No Gallop, No JVD, No Murmur, No Rub GI/Abdominal Exam: Normal Bowel Sounds, Soft, Tender (Moderate right lower quadrant) Extremities: Normal Inspection, Normal Range of Motion, Non-Tender, Normal Capillary Refill, No Pedal Edema Neurological: Alert Skin Exam: Warm, Dry Course - Vital Signs Last Recorded V/S: Last Vital Signs Temp 98.2 F 07/05/19 18:08 Pulse 70 07/05/19 18:08 Resp 18 07/05/19 18:08 BP 112/72 07/05/19 18:08 Pulse Ox 100 07/05/19 18:08 - Orders/Labs/Meds Orders: Active Orders 24 hr Category Date Time Status Sodium Chloride 0.9% [Saline Flush] Med 07/05/19 18:17 Active 10 ml FLUSH ASDIRECTED PRN Saline Lock Insert [OM.PC] Stat Oth 07/05/19 18:17 Ordered Medication Orders Sodium Chloride (Saline Flush) 10 ml FLUSH ASDIRECTED PRN PRN Reason: Keep Vein Open Last Admin: 07/05/19 18:52 Dose: 10 ml Labs: Laboratory Tests 07/05/19 07/05/19 07/05/19 Range/Units 18:34 18:34 18:34 WBC 6.35 (3.98-10.04) K/mm3 RBC 4.74 (3.98-5.22) M/mm3 Hgb 13.4 (11.2-15.7) gm/dl Hct 40.5 (34.1-44.9) % MCV 85.4 (79.4-94.8) fl MCH 28.3 (25.6-32.2) pg MCHC 33.1 (32.2-35.5) g/dl RDW Std Deviation 37.6 (36.4-46.3) fL Plt Count 343 (182-369) K/mm3 MPV 9.0 L (9.4-12.3) fl Neut % (Auto) 55.6 (34.0-71.1) % Lymph % (Auto) 34.6 (19.3-51.7) % [place] % (Auto) 8.3 (4.7-12.5) % Eos % (Auto) 0.8 (0.7-5.8) Baso % (Auto) 0.5 (0.1-1.2) % Neut # (Auto) 3.53 (1.56-6.13) K/mm3 Lymph # (Auto) 2.20 (1.18-3.74) K/mm3 [place] # (Auto) 0.53 H (0.24-0.36) K/mm3 Eos # (Auto) 0.05 (0.04-0.36) K/mm3 Baso # (Auto) 0.03 (0.01-0.08) K/mm3 Sodium 137 (136-145) mEq/L Potassium 4.1 (3.5-5.1) mEq/L Chloride 104 (98-107) mEq/L Carbon Dioxide 25 (21-32) mEq/L Anion Gap 12.1 (5-15) BUN 14 (7-18) mg/dL Creatinine 0.9 (0.55-1.02) mg/dL Est Cr Clr Drug Dosing 83.95 mL/min Estimated GFR (MDRD) > 60 (>60) mL/min BUN/Creatinine Ratio 15.6 (14-18) Glucose 89 (74-106) mg/dL Calcium 8.7 (8.5-10.1) mg/dL Total Bilirubin 0.2 (0.2-1.0) mg/dL AST 10 L (15-37) U/L ALT 23 (14-59) U/L Alkaline Phosphatase 55 (46-116) U/L Total Protein 6.8 (6.4-8.2) g/dl Albumin 3.6 (3.4-5.0) g/dl Globulin 3.2 gm/dL Albumin/Globulin Ratio 1.1 (1-2) HCG, Quant 694.0 mIU/mL Urine Color (Yellow) Urine Appearance (Clear) Urine pH (5.0-8.0) Ur Specific [place] (1.005-1.030) Urine Protein (Negative) Urine Glucose (UA) (Negative) Urine Ketones (Negative) Urine Occult Blood (Negative) Urine Nitrite (Negative) Urine Bilirubin (Negative) Urine Urobilinogen (0.2-1.0) Ur Leukocyte Esterase (Negative) Urine RBC (0-5) /hpf Urine WBC (0-5) /hpf Ur Squamous Epith Cells (0-5) /hpf Amorphous Sediment (NOT SEEN) /hpf Urine Bacteria (FEW) /hpf Urine Mucus (FEW) /hpf Blood Type A POSITIVE Gel Antibody Screen Negative 07/05/19 Range/Units 18:55 WBC (3.98-10.04) K/mm3 RBC (3.98-5.22) M/mm3 Hgb (11.2-15.7) gm/dl Hct (34.1-44.9) % MCV (79.4-94.8) fl MCH (25.6-32.2) pg MCHC (32.2-35.5) g/dl RDW Std Deviation (36.4-46.3) fL Plt Count (182-369) K/mm3 MPV (9.4-12.3) fl Neut % (Auto) (34.0-71.1) % Lymph % (Auto) (19.3-51.7) % [place] % (Auto) (4.7-12.5) % Eos % (Auto) (0.7-5.8) Baso % (Auto) (0.1-1.2) % Neut # (Auto) (1.56-6.13) K/mm3 Lymph # (Auto) (1.18-3.74) K/mm3 [place] # (Auto) (0.24-0.36) K/mm3 Eos # (Auto) (0.04-0.36) K/mm3 Baso # (Auto) (0.01-0.08) K/mm3 Sodium (136-145) mEq/L Potassium (3.5-5.1) mEq/L Chloride (98-107) mEq/L Carbon Dioxide (21-32) mEq/L Anion Gap (5-15) BUN (7-18) mg/dL Creatinine (0.55-1.02) mg/dL Est Cr Clr Drug Dosing mL/min Estimated GFR (MDRD) (>60) mL/min BUN/Creatinine Ratio (14-18) Glucose (74-106) mg/dL Calcium (8.5-10.1) mg/dL Total Bilirubin (0.2-1.0) mg/dL AST (15-37) U/L ALT (14-59) U/L Alkaline Phosphatase (46-116) U/L Total Protein (6.4-8.2) g/dl Albumin (3.4-5.0) g/dl Globulin gm/dL Albumin/Globulin Ratio (1-2) HCG, Quant mIU/mL Urine Color Yellow (Yellow) Urine Appearance Slt cloudy H (Clear) Urine pH 7.5 (5.0-8.0) Ur Specific [place] 1.025 (1.005-1.030) Urine Protein Negative (Negative) Urine Glucose (UA) Negative (Negative) Urine Ketones Negative (Negative) Urine Occult Blood 2+ H (Negative) Urine Nitrite Negative (Negative) Urine Bilirubin Negative (Negative) Urine Urobilinogen 0.2 (0.2-1.0) Ur Leukocyte Esterase Negative (Negative) Urine RBC 0-5 (0-5) /hpf Urine WBC 0-5 (0-5) /hpf Ur Squamous Epith Cells 0-5 (0-5) /hpf Amorphous Sediment Moderate H (NOT SEEN) /hpf Urine Bacteria Few (FEW) /hpf Urine Mucus Not seen (FEW) /hpf Blood Type Gel Antibody Screen Meds: Medications Generic Name Dose Route Start Last Admin Trade Name Freq PRN Reason Stop Dose Admin Sodium Chloride 10 ml 07/05/19 18:17 07/05/19 18:52 Saline Flush FLUSH 10 ml ASDIRECTED PRN Administration Keep Vein Open - Re-Assessments/Exams Free Text/Narrative Re-Assessment/Exam: 07/05/19 19:59 HCG this morning was 896 ECG female is 694, no transvaginal ultrasound shows "impression: #1 no intrauterine gestational sac or discrete adnexal abnormalities. #2 mild amount of free fluid within the cul-de-sac most likely physiologic. #3 previous study showed a small cystic area within the endometrial cavity which is no longer seen." 07/05/19 19:59 Departure - Departure Time of Disposition: 20:00 Disposition: Home, Self-Care 01 Clinical Impression: Complete - Discharge Information Referrals: Cristian Reynolds MD [Primary Care Provider] - Forms: ED Department Discharge, ED Return to Work/School Form Additional Instructions: Home, rest, return as needed for worsening condition Sepsis Event Note - Evaluation Sepsis Screening Result: No Definite Risk - Focused Exam Vital Signs: Vital Signs Temp Pulse Resp BP Pulse Ox 07/05/19 18:08 98.2 F 70 18 112/72 100 Date Exam was Performed: 07/05/19 Time Exam was Performed: 19:59 - My Orders Last 24 Hours: My Active Orders 07/05/19 18:17 Sodium Chloride 0.9% [Saline Flush] 10 ml FLUSH ASDIRECTED PRN Saline Lock Insert [OM.PC] Stat - Assessment/Plan Last 24 Hours: My Active Orders 07/05/19 18:17 Sodium Chloride 0.9% [Saline Flush] 10 ml FLUSH ASDIRECTED PRN Saline Lock Insert [OM.PC] Stat
[2019-07-05] MEDS ORDERED: Sodium Chloride 0.9% 10 ML Syringe FLUSH PRN (18:17)
--- NOTE | 2019-07-05 19:55 | US ---
1st trimester obstetrical ultrasound: Multiple real-time images were obtained transvaginally. Comparison: Previous study of 07/03/19. Minimal cystic area that was noted within the endometrial canal on prior study is no longer seen. Endometrial thickness normal measuring about 4.8 mm. Mild amount of free fluid is seen within the cul-de-sac most likely physiologic. Previous right oophorectomy is seen. Left ovary is felt to appear within normal limits. Impression: 1. No intrauterine gestational sac or discrete adnexal abnormalities. 2. Mild amount of free fluid within the cul-de-sac most likely physiologic. 3. Previous study showed a small cystic area within the endometrial cavity which is no longer seen. Diagnostic code #2 This report was dictated in [place] Standard Time
== END 2019-07-05 20:10 | disposition home or self-care (01) ==
LOC: JD.ED 17:50
DX: O03.9 Complete or unspecified spontaneous abortion without complication (principal); Z91.018 Allergy to other foods; Z91.048 Other nonmedicinal substance allergy status
CPT/HCPCS: 36415; 76817; 76817-26; 80053; 81001; 84702; 85025; 86850; 86900; 86901; 99283; 99284-25

== ENCOUNTER 2019-09-24 06:59 | Emergency (ER) | payer BC ==
[2019-09-24] MEDS ORDERED: Ondansetron 4 MG/2 ML SDV IVPUSH ONE (07:21)
[2019-09-24] MEDS ORDERED: Sodium Chloride 0.9% 1,000 ML IV ONE (07:21)
[2019-09-24] MEDS ORDERED: Sodium Chloride 0.9% 10 ML Syringe FLUSH PRN (07:21)
--- NOTE | 2019-09-24 08:40 | EDM.PDOC ---
ED HPI GENERAL MEDICAL PROBLEM - General Chief Complaint: Gastrointestinal Problem Stated Complaint: 6 WKS PG/VOMITING X 1 WEEK Time Seen by Provider: 09/24/19 07:53 Source of Information: Reports: Patient History Limitations: Reports: No Limitations - History of Present Illness INITIAL COMMENTS - FREE TEXT/NARRATIVE: TRIAGE NOTE -- Pt states she has been vomiting for the past week. Pt states she is 6 weeks with LMP jul 24. Pt denies any respiratory symptoms or fevers. Pt states she has not been able to eat or drink due to the vomiting. As above. Patient is 5 para 1 with history of spontaneous abortions. She is under the care of an chief of party. Apparently is considered high risk as expected. Is on progesterone. There has been no spotting or pelvic pain. She has had nausea and vomiting with other pregnancies but "never this bad." She has not taken any medication or tried any other measure to moderate symptoms. She does have ready access to her chief of party who is local. - Related Data Allergies Allergy/AdvReac Type Severity Reaction Status Date / Time [place] And Derivatives Allergy Anaphylactic Verified 09/24/19 07:11 Shock fruit Allergy Anaphylactic Uncoded 09/24/19 07:11 Shock metal Allergy Hives Uncoded 09/24/19 07:11 Home Meds: Home Meds Ondansetron [Zofran ODT] 4 mg PO Q4H PRN 09/24/19 [History] Pnv No.95/Ferrous Fum/Folic AC [ Multivitamin Tablet] 1 tab PO DAILY [History] Progesterone, Micronized [Progesterone] 100 mg RECTAL DAILY 09/24/19 [History] Past Medical History HEENT History: Reports: Impaired Vision Cardiovascular History: Reports: None Respiratory History: Reports: None Genitourinary History: Reports: UTI, Recurrent 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: Reports: , Spontaneous , Other (See Below) Other 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: ovarian cyst, pelvic pain, dyspareunia Musculoskeletal History: Reports: Fracture Other Musculoskeletal History: fx right arm and wrist Neurological History: Reports: Migraines Psychiatric History: Reports: Bipolar, Depression Other Psychiatric History: possibly bipolar, no official diagnosis Endocrine/Metabolic History: Reports: None Hematologic History: Reports: None Immunologic History: Reports: None Oncologic (Cancer) History: Reports: None Dermatologic History: Reports: None - Past Surgical History Head Surgeries/Procedures: Reports: None HEENT Surgical History: Reports: Adenoidectomy, Naso-Sinus Surgery, Tonsillectomy Other HEENT Surgeries/Procedures: sinus surgery Cardiovascular Surgical History: Reports: None Respiratory Surgical History: Reports: None GI Surgical History: Reports: Hernia, Abdominal Female Surgical History: Reports: Section, Oophorectomy Endocrine Surgical History: Reports: None Oncologic Surgical History: Reports: None Dermatological Surgical History: Reports: None Social & Family History - Family History Family Medical History: Noncontributory - Tobacco Use Smoking Status *Q: Never Smoker - Caffeine Use Caffeine Use: Reports: None - Recreational Drug Use Recreational Drug Use: No - Living Situation & Occupation Living situation: Reports: Single Occupation: Employed ED ROS GENERAL - Review of Systems Review Of Systems: Comprehensive ROS is negative, except as noted in HPI. ED EXAM - Physical Exam Exam: See Below Exam Limited By: No Limitations General Appearance: Alert, WD/WN, No Apparent Distress Eye Exam: Bilateral Eye: EOMI, PERRL Ears: Normal External Exam Nose: Normal Inspection Throat/Mouth: Normal Inspection Head: Atraumatic, Normocephalic Neck: Normal Inspection, Supple Respiratory/Chest: No Respiratory Distress, Lungs Clear, Normal Breath Sounds, No Accessory Muscle Use, Chest Non-Tender Cardiovascular: Regular Rate, Rhythm, No Edema GI/Abdominal Exam: Soft, Non-Tender Back Exam: Normal Inspection. No: CVA Tenderness (L), CVA Tenderness (R) Extremities: Normal Inspection, Non-Tender, Normal Capillary Refill Neurological: Alert, Oriented, Normal Cognition, No Motor/Sensory Deficits Psychiatric: Normal Affect, Normal Mood Skin Exam: Warm, Dry Course - Vital Signs Last Recorded V/S: Last Vital Signs Temp 36.4 C 09/24/19 07:09 Pulse 79 09/24/19 07:09 Resp 18 09/24/19 07:09 BP 115/73 09/24/19 07:09 Pulse Ox 97 09/24/19 07:09 - Orders/Labs/Meds Orders: Active Orders 24 hr Category Date Time Status Peripheral IV Care [RC] . DIRECTED Care 09/24/19 07:22 Active Sodium Chloride 0.9% [Saline Flush] Med 09/24/19 07:21 Active 10 ml FLUSH ASDIRECTED PRN Peripheral IV Insertion Adult [OM.PC] Routine Oth 09/24/19 07:21 Ordered Medication Orders Sodium Chloride (Saline Flush) 10 ml FLUSH ASDIRECTED PRN PRN Reason: Keep Vein Open Last Admin: 09/24/19 07:32 Dose: 10 ml Meds: Medications Generic Name Dose Route Start Last Admin Trade Name [place] PRN Reason Stop Dose Admin Sodium Chloride 10 ml 09/24/19 07:21 09/24/19 07:32 Saline Flush FLUSH 10 ml ASDIRECTED PRN Administration Keep Vein Open Discontinued Medications Generic Name Dose Route Start Last Admin Trade Name Freq PRN Reason Stop Dose Admin Sodium Chloride 1,000 mls @ 999 mls/hr 09/24/19 07:21 09/24/19 07:32 Normal Saline IV 09/24/19 08:21 999 mls/hr ONETIME ONE Administration Ondansetron HCl 4 mg 09/24/19 07:21 09/24/19 07:32 Zofran IVPUSH 09/24/19 07:22 4 mg ONETIME ONE Administration Departure - Departure Time of Disposition: 08:43 Disposition: Home, Self-Care 01 Condition: Good Clinical Impression: Hyperemesis gravidarum, First trimester , History of spontaneous , currently - Discharge Information *PRESCRIPTION DRUG MONITORING PROGRAM REVIEWED*: Not Applicable *COPY OF PRESCRIPTION DRUG MONITORING REPORT IN PATIENT TERESA: Not Applicable Referrals: Cristian Reynolds MD [Primary Care Provider] - Additional Instructions: The patient has done well with IV fluids and is happy to be discharged to home. She is instructed to call her chief of party this morning for further management. Strict precautions for return to ER, fever or other symptom of acute medical illness, nausea and vomiting unable to be managed as outpatient. Sepsis Event Note - Evaluation Sepsis Screening Result: No Definite Risk - Focused Exam Vital Signs: Vital Signs Temp Pulse Resp BP Pulse Ox 09/24/19 07:09 36.4 C 79 18 115/73 97 Date Exam was Performed: 09/24/19 Time Exam was Performed: 08:35 - My Orders Last 24 Hours: My Active Orders 09/24/19 07:21 Sodium Chloride 0.9% [Saline Flush] 10 ml FLUSH ASDIRECTED PRN Peripheral IV Insertion Adult [OM.PC] Routine 09/24/19 07:22 Peripheral IV Care [RC] . DIRECTED - Assessment/Plan Last 24 Hours: My Active Orders 09/24/19 07:21 Sodium Chloride 0.9% [Saline Flush] 10 ml FLUSH ASDIRECTED PRN Peripheral IV Insertion Adult [OM.PC] Routine 09/24/19 07:22 Peripheral IV Care [RC] . DIRECTED
== END 2019-09-24 09:00 | disposition home or self-care (01) ==
LOC: JD.ED 06:59
DX: O21.0 Mild hyperemesis gravidarum (principal); Z3A.01 Less than 8 weeks gestation of pregnancy; Z91.018 Allergy to other foods
CPT/HCPCS: 96361; 96374; 99283; J2405; J7030

== ENCOUNTER 2020-05-04 04:44 | Inpatient (IN) | payer BC ==
[2020-05-04] MEDS ORDERED: Sodium Chloride 0.9% 10 ML Syringe FLUSH PRN (07:45)
[2020-05-04] MEDS ORDERED: Oxytocin/Lactated Ringers 10 UNIT/1,000 ML BAG IV SCH ×2 (07:45)
[2020-05-04] MEDS ORDERED: Nalbuphine 10 MG/1 ML Vial IVPUSH PRN (07:45)
[2020-05-04] MEDS ORDERED: Ondansetron 4 MG/2 ML SDV IVPUSH PRN (07:45)
[2020-05-04] MEDS ORDERED: Ampicillin 2 GM in Sodium Chloride 0.9% 100 ML IV ONE (08:00)
[2020-05-04] MEDS: Lactated Ringers 1,000 ML IV SCH ×4 (08:13→19:13)
--- NOTE | 2020-05-04 08:42 | PCM.LDHP ---
L&D History of Present Illness - General Date of Service: 05/04/20 Admit Problem/Dx: Patient Status Order with Admit Dx/Problem 05/04/20 07:05 Patient Status [ADT] Routine Admission Diagnosis/Problem Admission Diagnosis/Problem 05/04/20 08:22 Herb is a 25-year-old 5 para 031 female who is admitted at 39 and 0/7 weeks with an KANWAL of 05/11/2020 for elective induction of labor. She has a p revious history of a low transverse section done because of gastroschisis and the baby. Source of Information: Patient History Limitations: Reports: No Limitations - History of Present Illness Introduction:: Herb is a 25-year-old 5 para 031 female who is admitted at 39 and 0/7 weeks with an KANWAL of 05/11/2020 for elective induction of labor. She has a previous history of a low transverse section done because of gastroschisis and the baby. The process and procedure of elective induction of labor in a patient desiring a trial of labor after section to attempt a vaginal after section was discussed in detail on at least 3 occasions during course. She appears to be aware of the potential risk, benefits, possible need for emergent section and follow-up. She wishes to proceed. She has signed a consent for both trial of labor after section for and for repeat section. Appropriate evaluations and preventative steps will be taken during the course of her labor and delivery. 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 She had normal onset of menarche. Cycles are somewhat irregular. LMP was 08/05/2019 and was definite. She is not using any control at the time of conception. She has a history of a spontaneous 06/18/2015 at just less than 20 weeks gestation. She has a history of a 34-week delivered on 03/11/2016 at by primary section. Baby weighed 3 pounds 9 ounces, child's name is Niya. Baby had gastroschisis and was delivered in [place], [place] having need for immediate surgical intervention. Patient had an elective termination of on 06/12/2018 after taking Plan B with unsuccessful results she chose to have an elective termination. Patient also had a spontaneous miscarriage on 06/23/2019 during first trimester. course. Patient was seen fairly early in the . Ultrasound done at 6-1/7 weeks and again at 7-1/7 weeks correlated within a few days of her LMP dating. She was evaluated with an ultrasound at her first visit on 11/11/2019 at 14-2/7 weeks gestational age. Because of the early ultrasound findings decision was made to proceed with certain LMP dating. Patient was seen on a regular basis during the course of the . She desires a trial of labor after section for attempt at vaginal after section. This has been discussed in detail with her as described in the above HPI. The she declined her 1 hour GTT. Hemoglobin A1c was ordered and returned within normal limits. The strep screen was positive. Patient is a candidate for ampicillin prophylaxis in L&D. She has a history of bipolar disorder with depression but also suffers from anxiety. She plans to breast-feed. Prequel noninvasive screen was negative for trisomy 21, 18 and 13. Patient has a history of posttraumatic stress disorder. Tdap was given on 03/05/2020. She is rubella immune. HPV vaccination was given on in 2010. Hepatitis B vaccination was given in 1996. Meningococcal immunization was given in 2014. The patient had appropriate fundal height growth during the course of her . Her weight gain was from 169.6 to 230 pounds for a 61 pound weight gain. Her vital signs are stable throughout the course of the care. Laboratory testing in : Blood is a positive with a negative antibody screen. First hemoglobin was 13.6 g/dL. Platelets are 322,000. She is rubella immune. RPR is nonreactive. Add E. coli on first urine culture. This was treated effectively. Her hepatitis B surface antigen test was negative as was her HIV assay. Chlamydia and gonorrhea tests were both negative. Patient declined second trimester testing with 1 hour GTT. On 04/22/2020 her hemoglobin is 11.8 and her platelets were 297. Hemoglobin A1c on 04/22/2020 was 5.40 which was within normal limits. Group B strep screen was positive. Allergies: 1. Adhesive tape 2. Fruit Medications: Promethazine 25 mg oral tablet every 6 hours early in the for nausea 2. vitamins daily Past medical history: 1. Spontaneous x2 2. Severe bipolar disorder. Also PTSD. Was on lithium but stopped early in the . Had depression with her daughter. 3. Eczema Past surgical history: 1. Elective termination of 2. Right oophorectomy 3. Primary section 2015 4. Tonsillectomy/adenoidectomy 5. Umbilical hernia repair Family history: Mother and father are alive and well. 3 brothers and 1 sister are alive and well. 4 grandparents are alive but medical history is unknown. She does not report any family history of bleeding disorder, blood clotting disorder, cancers, anesthesia related issues or related issues. Social history: Patient is single. She is not employed. She is a college graduate. Father the baby is Claude Lopez and she does not use any significant also alcohol, drugs or tobacco. Review of systems: In general patient has no complaints. Patient has been having irregular contractions for 24 to 48 hours. Was seen in L&D 24 hours ago for an extended OB check but did not change her cervix and was discharged home. Baby has been active. Skin: Negative Lungs: No infectious symptoms or shortness of breath Cardiovascular: No chest pain or exercise intolerance Breasts: No lumps, changes in size, pain, dimpling, discharge or axillary or supraclavicular concerns. GI: Negative : Changes associated with Musculoskeletal: Negative Neurological: Negative Physical exam: In general the patient is well-developed, well-nourished, pleasant female of stated age in no acute distress. Last evaluation in clinic patient's blood pressure was 120/74. Weight was 230 with a pregravid weight of 169.6 pounds. Fundal height was 39 cm. heart rate was 134 bpm. Skin is warm dry without lesions. HEENT, neck and back within normal limits. Lungs are clear with good breath sounds in all lung quinones. Cardiovascular exam shows regular and rhythm without murmurs. Breasts exam on first visit was unremarkable. It is not repeated at this time. Abdomen is with last fundal height of 39 cm. Genital per exam showed cervix to be 1 cm, 60% effaced, firm, -3, mid position Extremities and neurological exam are grossly within normal limits. - Related Data Allergies/Adverse Reactions: Allergies Allergy/AdvReac Type Severity Reaction Status Date / Time [place] And Derivatives Allergy Anaphylactic Verified 03/22/20 21:04 Shock fruit Allergy Anaphylactic Uncoded 09/24/19 07:11 Shock metal Allergy Hives Uncoded 09/24/19 07:11 Home Medications: Home Meds Ondansetron [Zofran ODT] 4 mg PO Q4H PRN 09/24/19 [History] Pnv No.95/Ferrous Fum/Folic AC [ Multivitamin Tablet] 1 tab PO DAILY 09/24/19 [History] hydrOXYzine pamoate [Vistaril] 50 mg PO ONETIME #1 cap 05/03/20 [Rx] Past Medical History HEENT History: Reports: Impaired Vision Cardiovascular History: Reports: None Respiratory History: Reports: None Genitourinary History: Reports: UTI, Recurrent 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: , Spontaneous , Other (See Below) Other OB/BYN History: ovarian cyst, pelvic pain, dyspareunia Musculoskeletal History: Reports: Fracture Other Musculoskeletal History: fx right arm and wrist Neurological History: Reports: Migraines Psychiatric History: Reports: Bipolar, Depression Other Psychiatric History: possibly bipolar, no official diagnosis Endocrine/Metabolic History: Reports: None Hematologic History: Reports: None Immunologic History: Reports: None Oncologic (Cancer) History: Reports: None Dermatologic History: Reports: None - Past Surgical History Head Surgeries/Procedures: Reports: None HEENT Surgical History: Reports: Adenoidectomy, Naso-Sinus Surgery, Tonsillectomy Other HEENT Surgeries/Procedures: sinus surgery Cardiovascular Surgical History: Reports: None Respiratory Surgical History: Reports: None GI Surgical History: Reports: Hernia, Abdominal Female Surgical History: Reports: Section, Oophorectomy Endocrine Surgical History: Reports: None Oncologic Surgical History: Reports: None Dermatological Surgical History: Reports: None Social & Family History - Family History Family Medical History: No Pertinent Family History - Caffeine Use Caffeine Use: Reports: None - Living Situation & Occupation Living situation: Reports: Single Occupation: Employed H&P Review of Systems - Review of Systems: Review Of Systems: See Below L&D Exam - Exam Exam: See Below Problem List Initiated/Reviewed/Updated: Yes Orders Last 24hrs: Active Orders 24 hr Category Date Time Status Patient Status [ADT] Routine ADT 05/04/20 07:05 Active Activity as Tolerated [RC] PFP Care 05/04/20 07:45 Active Communication Order [RC] ASDIRECTED Care 05/04/20 07:45 Active Heart Tones [RC] ASDIRECTED Care 05/04/20 07:45 Active Non Stress Test [RC] PER UNIT ROUTINE Care 05/04/20 07:45 Active Notify Provider [RC] PFP Care 05/04/20 07:45 Active Notify Provider [RC] PRN Care 05/04/20 07:45 Active Peripheral IV Care [RC] . DIRECTED Care 05/04/20 07:45 Active Pump Management, Intrathecal [RC] ASDIRECTED Care 05/04/20 07:52 Active Vital Signs [RC] PER UNIT ROUTINE Care 05/04/20 07:45 Active Regular Diet [DIET] Diet 05/04/20 Breakfast Active CBC WITH AUTO DIFF [HEME] Stat Lab 05/04/20 08:15 Received CORONAVIRUS COVID-19 RM [MOLEC] Stat Lab 05/04/20 08:00 Received RAPID PLASMA REAGIN,RPR [CHEM] Routine Lab 05/04/20 08:15 Received TYPE AND SCREEN [BBK] Stat Lab 05/04/20 08:15 Received Ampicillin 1 gm Med 05/04/20 12:00 Active Sodium Chloride 0.9% [Normal Saline] 100 ml IV Q4H Ampicillin 2 gm Med 05/04/20 08:00 Active Sodium Chloride 0.9% [Normal Saline] 100 ml IV ONETIME Lactated Ringers [Ringers, Lactated] 1,000 ml Med 05/04/20 07:45 Active IV ASDIRECTED Nalbuphine [Nubain] Med 05/04/20 07:45 Active 10 mg IVPUSH Q2H PRN Ondansetron [Zofran] Med 05/04/20 07:45 Active 4 mg IVPUSH Q4H PRN Oxytocin/Lactated Ringers [Pitocin in LR 10 Units/1,000 Med 05/04/20 07:45 Active ML] 10 unit in 1,000 ml IV .CONTINUOUS Oxytocin/Lactated Ringers [Pitocin in LR 10 Units/1,000 Med 05/04/20 07:45 Active ML] 10 unit in 1,000 ml IV TITRATE Sodium Chloride 0.9% [Saline Flush] Med 05/04/20 07:45 Active 10 ml FLUSH ASDIRECTED PRN Electronic Heart Tones Ext w TOCO [WOMSER] Oth 05/04/20 07:45 Ordered Routine Electronic Heart Tones Internal [WOMSER] Per Unit Oth 05/04/20 07:45 Ordered Routine Peripheral IV Insertion Adult [OM.PC] Routine Oth 05/04/20 07:45 Ordered Resuscitation Status Routine Resus Stat 05/04/20 07:45 Ordered Medication Orders Ampicillin Sodium 2 gm/ Sodium (Chloride) 100 mls @ 200 mls/hr IV ONETIME ONE Stop: 05/04/20 08:29 Last Admin: 05/04/20 08:13 Dose: 200 mls/hr Documented by: JUNIOR Ampicillin Sodium 1 gm/ Sodium (Chloride) 100 mls @ 200 mls/hr IV Q4H UMM Oxytocin/Lactated Ringer's (Pitocin In Lr 10 Units/1,000 Ml) 10 unit in 1,000 mls @ 12 mls/hr IV TITRATE UMM; Protocol Last Admin: 05/04/20 08:13 Dose: 2 munits/min, 12 mls/hr Documented by: JUNIOR Oxytocin/Lactated Ringer's (Pitocin In Lr 10 Units/1,000 Ml) 10 unit in 1,000 mls @ 100 mls/hr IV .CONTINUOUS UMM Lactated Ringer's (Ringers, Lactated) 1,000 mls @ 100 mls/hr IV ASDIRECTED UMM Last Admin: 05/04/20 08:13 Dose: 100 mls/hr Documented by: JUNIOR Nalbuphine HCl (Nubain) 10 mg IVPUSH Q2H PRN PRN Reason: Pain Ondansetron HCl (Zofran) 4 mg IVPUSH Q4H PRN PRN Reason: Nausea/Vomiting Sodium Chloride (Saline Flush) 10 ml FLUSH ASDIRECTED PRN PRN Reason: Keep Vein Open Assessment/Plan Comment:: 1. Herb is a 25-year-old 5 para 031 female who is admitted at 39 and 0/7 weeks with an KANWAL of 05/11/2020 for elective induction of labor. She has a previous history of a low transverse section done because of gastroschisis and the baby. She desires a trial of labor after section for an attempt at vaginal after section. 2. Group B strep positive status 3. Patient is okay with epidural 4. Patient plans to breast-feed. 5. Risk factors for the include history of group B strep positive status, anxiety and bipolar disorder, history of PTSD. Also excessive weight gain during the course of the . History of previous section. Plan: 1. Attempt a trial of labor after section for vaginal after section. Procedure, risk, benefits, laboratory testing, consents for repeat and , possible need for emergent section are all discussed with patient. She appears to agree and wishes to proceed. Consent is signed. 2. labs obtained 3. Near continuous monitoring in L&D 4. Anesthesia and surgery departments made aware of patient's presence in L&D 5. We will monitor labor very closely and proceed to for maternal or indications. 6. Covid19 testing 7. Epidural per patient desire 8. Support patients desire/plan for attempt at .
[2020-05-04] MEDS ORDERED: diphenhydrAMINE 50 MG/ML SDV IVPUSH PRN (11:46)
[2020-05-04] MEDS ORDERED: ePHEDrine 50 MG/ML SDV IVPUSH PRN (11:46)
[2020-05-04] MEDS ORDERED: fentaNYL 100 MCG/2 ML SDV EPIDUR PRN (11:46)
[2020-05-04] MEDS: Bupivacaine/fentaNYL/NS 100 ML Bag EPIDUR PRN ×2 (11:54→19:19)
[2020-05-04] MEDS: Ampicillin 1 GM in Sodium Chloride 0.9% 100 ML IV SCH ×3 (12:16→19:24)
--- NOTE | 2020-05-04 12:19 | PCM.PREANE ---
Preanesthetic Assessment - Procedure Proposed Procedure: Epidural - Anesthesia/Transfusion/Family Hx Anesthesia History: Prior Anesthesia Reaction Other Type of Anesthesia Reaction Comment: Pt states she woke up during her adnoid surgery, they "put her back under" Family History of Anesthesia Reaction: No Transfusion History: Prior Transfusion Without Reaction - Review of Systems General: Fatigue Pulmonary: No Symptoms Cardiovascular: No Symptoms Gastrointestinal: Abdominal Pain (labor) Neurological: No Symptoms Other: Reports: None - Physical Assessment Height: 1.63 m Weight: 106.141 kg ASA Class: 2 Mental Status: Alert & Oriented x3 Airway Class: Mallampati = 2 Dentition: Reports: Normal Dentition Thyro-Mental Finger Breadths: 3 Mouth Opening Finger Breadths: 3 ROM/Head Extension: Full Lungs: Clear to Auscultation, Normal Respiratory Effort Cardiovascular: Regular Rate, Regular Rhythm - Lab Values: Laboratory Last Values WBC 7.44 K/mm3 (3.98-10.04) 05/04/20 08:15 RBC 4.52 M/mm3 (3.98-5.22) 05/04/20 08:15 Hgb 11.6 gm/dl (11.2-15.7) 05/04/20 08:15 Hct 36.5 % (34.1-44.9) 05/04/20 08:15 MCV 80.8 fl (79.4-94.8) 05/04/20 08:15 MCH 25.7 pg (25.6-32.2) 05/04/20 08:15 MCHC 31.8 g/dl (32.2-35.5) L 05/04/20 08:15 RDW Std Deviation 42.9 fL (36.4-46.3) 05/04/20 08:15 Plt Count 220 K/mm3 (182-369) D 05/04/20 08:15 MPV 9.9 fl (9.4-12.3) 05/04/20 08:15 Neut % (Auto) 72.6 % (34.0-71.1) H 05/04/20 08:15 Lymph % (Auto) 19.2 % (19.3-51.7) L 05/04/20 08:15 [place] % (Auto) 7.7 % (4.7-12.5) 05/04/20 08:15 Eos % (Auto) 0.3 (0.7-5.8) L 05/04/20 08:15 Baso % (Auto) 0.1 % (0.1-1.2) 05/04/20 08:15 Neut # (Auto) 5.40 K/mm3 (1.56-6.13) 05/04/20 08:15 Lymph # (Auto) 1.43 K/mm3 (1.18-3.74) 05/04/20 08:15 [place] # (Auto) 0.57 K/mm3 (0.24-0.36) H 05/04/20 08:15 Eos # (Auto) 0.02 K/mm3 (0.04-0.36) L 05/04/20 08:15 Baso # (Auto) 0.01 K/mm3 (0.01-0.08) 05/04/20 08:15 SARS-CoV-2 RNA (RM) Negative (NEGATIVE) 05/04/20 08:00 Blood Type A POSITIVE 05/04/20 08:15 Gel Antibody Screen Negative 05/04/20 08:15 - Allergies Allergies/Adverse Reactions: Allergies Allergy/AdvReac Type Severity Reaction Status Date / Time [place] And Derivatives Allergy Anaphylactic Verified 03/22/20 21:04 Shock fruit Allergy Anaphylactic Uncoded 09/24/19 07:11 Shock metal Allergy Hives Uncoded 09/24/19 07:11 - Anesthesia Plan Pre-Op Medication Ordered: None - Acknowledgements Anesthesia Type Planned: Epidural Pt an Appropriate Candidate for the Planned Anesthesia: Yes Alternatives and Risks of Anesthesia Discussed w Pt/Guardian: Yes Pt/Guardian Understands and Agrees with Anesthesia Plan: Yes PreAnesthesia Questionnaire HEENT History: Reports: Impaired Vision Cardiovascular History: Reports: None Respiratory History: Reports: None Gastrointestinal History: Reports: GERD Genitourinary History: Reports: UTI, Recurrent, Other (See Below) Other Genitourinary History: Hx of UTI teenage years, no complaint of UTI in several years 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: , 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 , Other (See Below) Other OB/BYN History: ovarian cyst, pelvic pain, dyspareunia Musculoskeletal History: Reports: Fracture Other Musculoskeletal History: fx right arm and wrist Neurological History: Reports: Migraines Psychiatric History: Reports: Anxiety, Bipolar, Depression, PTSD Other Psychiatric History: possibly bipolar, no official diagnosis Endocrine/Metabolic History: Reports: None Hematologic History: Reports: None Immunologic History: Reports: None Oncologic (Cancer) History: Reports: None Dermatologic History: Reports: None - Infectious Disease History Infectious Disease History: Reports: MRSA Other Infectious Disease History: 01/20/2010, pt stated she doesn't know if she ever got tested again to be decolonized. Unable to run test now due to pt having antibiotics this morning. Pt will talk to mother to see if she ever got a negative test after. - Past Surgical History Head Surgeries/Procedures: Reports: None HEENT Surgical History: Reports: Adenoidectomy, Naso-Sinus Surgery, Tonsillectomy Other HEENT Surgeries/Procedures: sinus surgery Cardiovascular Surgical History: Reports: None Respiratory Surgical History: Reports: None GI Surgical History: Reports: Hernia, Abdominal Female Surgical History: Reports: Section, Oophorectomy Endocrine Surgical History: Reports: None Oncologic Surgical History: Reports: None Dermatological Surgical History: Reports: None - SUBSTANCE USE Tobacco Use Status *Q: Former Tobacco User Tobacco Use Within Last Twelve Months: Cigarettes Recreational Drug Use History: No - HOME MEDS Home Medications: Home Meds Ondansetron [Zofran ODT] 4 mg PO Q4H PRN 09/24/19 [History] Pnv No.95/Ferrous Fum/Folic AC [ Multivitamin Tablet] 1 tab PO DAILY 09/24/19 [History] hydrOXYzine pamoate [Vistaril] 50 mg PO ONETIME #1 cap 05/03/20 [Rx] - CURRENT (IN HOUSE) MEDS Current Meds: Current Medications Diphenhydramine HCl (Benadryl) 25 mg IVPUSH Q6H PRN PRN Reason: pruritis Ephedrine Sulfate (Ephedrine Sulfate) 5 mg IVPUSH ASDIRECTED PRN PRN Reason: Hypotension Fentanyl (Sublimaze) 100 mcg EPIDUR Q3H PRN PRN Reason: Pain Last Admin: 05/04/20 11:53 Dose: 100 mcg Documented by: Fentanyl/Bupivacaine HCl (Fentanyl/Bupivacaine/Ns 2 Mcg-0.125% 100 Ml) 100 ml EPIDUR ASDIRECTED PRN PRN Reason: Pain Last Admin: 05/04/20 11:54 Dose: 100 ml Documented by: Ampicillin Sodium 1 gm/ Sodium (Chloride) 100 mls @ 200 mls/hr IV Q4H UMM Oxytocin/Lactated Ringer's (Pitocin In Lr 10 Units/1,000 Ml) 10 unit in 1,000 mls @ 12 mls/hr IV TITRATE UMM; Protocol Last Titration: 05/04/20 11:30 Dose: 0 munits/min, 0 mls/hr Documented by: Oxytocin/Lactated Ringer's (Pitocin In Lr 10 Units/1,000 Ml) 10 unit in 1,000 mls @ 100 mls/hr IV .CONTINUOUS UMM Lactated Ringer's (Ringers, Lactated) 1,000 mls @ 100 mls/hr IV ASDIRECTED UMM Last Admin: 05/04/20 11:49 Dose: 100 mls/hr Documented by: Nalbuphine HCl (Nubain) 10 mg IVPUSH Q2H PRN PRN Reason: Pain Ondansetron HCl (Zofran) 4 mg IVPUSH Q4H PRN PRN Reason: Nausea/Vomiting Sodium Chloride (Saline Flush) 10 ml FLUSH ASDIRECTED PRN PRN Reason: Keep Vein Open Discontinued Medications Ampicillin Sodium 2 gm/ Sodium (Chloride) 100 mls @ 200 mls/hr IV ONETIME ONE Stop: 05/04/20 08:29 Last Admin: 05/04/20 08:13 Dose: 200 mls/hr Documented by:
[2020-05-04] MEDS ORDERED: Sodium Chloride 0.9% 1,000 ML ONE (19:49)
[2020-05-04] MEDS: Sodium Chloride 0.9% 1,000 ML IV SCH (20:05)
[2020-05-05] MEDS ORDERED: ePHEDrine Sulfate/0.9% NaCl/Pf 25 MG/5 ML SYRINGE IV ONE
[2020-05-05] MEDS ORDERED: Bupivacaine 0.25% 10 ML SDV ONE
[2020-05-05] MEDS: Ampicillin 1 GM in Sodium Chloride 0.9% 100 ML IV SCH ×2 (00:06→03:44)
[2020-05-05] MEDS: Bupivacaine/fentaNYL/NS 100 ML Bag EPIDUR PRN (02:33)
[2020-05-05] MEDS: Sodium Chloride 0.9% 1,000 ML IV SCH (03:42)
--- NOTE | 2020-05-05 05:16 | PCM.SN.2 ---
- Free Text/Narrative Note: Delivery note: Herb is a 25-year-old 5 now para 1-1-3-2 female who was admitted at 39 and 0/7 weeks with an KANWAL of 05/11/2020 for elective induction of labor. She has a previous history of a low transverse section done because of gastroschisis in the baby. The procedure and process of trial of labor after section of the attempt at vaginal after section were all discussed with patient. She appeared to understand, wished to proceed with the trial of labor. Patient was started on Pitocin on the a.m. of 05/04/2020. At about midday artificial rupture membranes was undertaken. Patient made steady but very slow progress over the course of the next 16 hours. At approximately 2000 hrs. on 05/04/2020 An pressure catheter was placed. Patient was started on an amnioinfusion because of some variable decelerations that were occurring. Variability remained good throughout the labor course. She progressed to complete cervical dilation by approximately 0230 hrs. on 05/05/2020. Just before delivery patient noted that she was exhausted. The baby was at a +3 station with some caput formation and molding. Discussion was held her as to options including continued pushing, attempt at vacuum extraction delivery and section. Risks and benefits of each were discussed in detail with the patient. The decision was made to proceed with attempt at vacuum extraction delivery. At 0444 hrs. on 05/05/2020 the baby delivered by vacuum extraction delivery. Extraction was used over the course of 3 contractions. No pop offs were noted and vacuum was released in between contractions. Patient delivered a baby in occiput posterior with rotation to occiput anterior as the baby's head delivered. No nuchal cord was noted. The baby then delivered completely without any further problems. Baby was placed on mom's abdomen. Nose mouth were bulb suctioned the baby was dried. The baby weighed 3690 g (8 pounds 2 ounces) was 21.25 inches in length and had Apgars of 6 and 8. His name is Twila Vigil. Cord was clamped x2 and cut by the baby's Father Claude. Pitocin was increased to 500 cc an hour to facilitate increase in uterine tone and decrease likelihood of bleeding. Patient was noted to have only 2 very superficial mucosal abrasions none each side the medial aspect of the labia minora. No bleeding was noted and no anatomic distortion was apparent therefore no sutures were placed. The umbilical cord blood was obtained. The umbilical cord had 3 vessels. The placenta delivered at 0447 hrs. in a [place] presentation, appeared intact and complete and was discarded per patient desire. Blood loss was 200 cc. Patient plans to breast-feed. Condition: Good.
[2020-05-05] MEDS ORDERED: Docusate Sodium 100 MG Cap PO PRN (05:43)
[2020-05-05] MEDS ORDERED: Benzocaine/Menthol 20%-0.5% Spray 56 GM Canister TOP PRN (05:43)
[2020-05-05] MEDS ORDERED: Witch Hazel Medicated Pads 40/Jar TOP PRN (05:43)
[2020-05-05] MEDS ORDERED: Acetaminophen 325 MG Tab PO PRN (05:43)
[2020-05-05] MEDS: Ibuprofen 600 MG Tab PO PRN ×2 (08:56→20:17)
[2020-05-05] MEDS: Prenatal Multivitamin with Calcium/Folic Acid/Iron Tab PO SCH (08:57)
[2020-05-06] MEDS: Ibuprofen 600 MG Tab PO PRN ×2 (00:21→04:30)
--- NOTE | 2020-05-06 07:38 | PCM.DCSUM1 ---
Discharge Summary - Hospital Course Free Text/Narrative:: Herb is a 25-year-old 5 now para 1-1-3-2 female who was admitted at 39 and 0/7 weeks with an KANWAL of 05/11/2020 for elective induction of labor. She has a previous history of a low transverse section done because of gastroschisis in the baby. The procedure and process of trial of labor after section of the attempt at vaginal after section were all discussed with patient. She appeared to understand, wished to proceed with the trial of labor. Patient was started on Pitocin on the a.m. of 05/04/2020. At about midday artificial rupture membranes was undertaken. Patient made steady but very slow progress over the course of the next 16 hours. At approximately 2000 hrs. on 05/04/2020 An pressure catheter was placed. Patient was started on an amnioinfusion because of some variable decelerations that were occurring. Variability remained good throughout the labor course. She progressed to complete cervical dilation by approximately 0230 hrs. on 05/05/2020. Just before delivery patient noted that she was exhausted. The baby was at a +3 station with some caput formation and molding. Discussion was held her as to options including continued pushing, attempt at vacuum extraction delivery and section. Risks and benefits of each were discussed in detail with the patient. The decision was made to proceed with attempt at vacuum extraction delivery. At 0444 hrs. on 05/05/2020 the baby delivered by vacuum extraction delivery. Extraction was used over the course of 3 contractions. No pop offs were noted and vacuum was released in between contractions. Patient delivered a baby in occiput posterior with rotation to occiput anterior as the baby's head delivered. No nuchal cord was noted. The baby then delivered completely without any further problems. Baby was placed on mom's abdomen. Nose mouth were bulb suctioned the baby was dried. The baby weighed 3690 g (8 pounds 2 ounces) was 21.25 inches in length and had Apgars of 6 and 8. His name is Twila Vigil. Cord was clamped x2 and cut by the baby's Father Claude. Pitocin was increased to 500 cc an hour to facilitate increase in uterine tone and decrease likelihood of bleeding. Patient was noted to have only 2 very superficial mucosal abrasions none each side the medial aspect of the labia minora. No bleeding was noted and no anatomic distortion was apparent therefore no sutures were placed. The umbilical cord blood was obtained. The umbilical cord had 3 vessels. The placenta delivered at 0447 hrs. in a Forman presentation, appeared intact and complete and was discarded per patient desire. Blood loss was 200 cc. Patient plans to breast-feed. Sperm patient is done well. She is nursing without problems, ambulating without concerns and has minimal lochia. She is voiding well. Epidural has worn off completely. She is desiring discharge home. Condition: Good. Diagnosis: Stroke: No - Discharge Data Discharge Date: 05/06/20 Discharge Disposition: Home, Self-Care 01 Condition: Good - Referral to Home Health Primary Care Physician: Cristian Reynolds MD - Patient Instructions Diet: Regular Diet as Tolerated (Nursing diet with increased calories and calcium as recommended) Activity: As Tolerated (No intercourse or tampons until bleeding resolves.) Driving: May Drive Today Showering/Bathing: May Shower Showering/Bathing, Other: May take a bath Notify Provider of: Fever, Increased Pain, Swelling and Redness, Nausea and/or Vomiting - Discharge Plan Home Medications: Home Meds Pnv No.95/Ferrous Fum/Folic AC [ Multivitamin Tablet] 1 tab PO DAILY 09/24/19 [History] Acetaminophen [Tylenol] 650 mg PO Q4H PRN tablet 05/06/20 [Rx] Ibuprofen [Motrin] 600 mg PO Q4H PRN tablet 05/06/20 [Rx] donna Johns [Tucks] 1 pad TOP ASDIRECTED PRN pad 05/06/20 [Rx] Referrals: Cristian Reynolds MD [Primary Care Provider] - (Return to clinic[facility] practitioner2 weeks.) - Discharge Summary/Plan Comment DC Time >30 min.: No Discharge Summary/Plan Comment: Discharge instructions: 1. Discharge home 2. Diet, activity and follow-up discussed with patient. Recommend nursing diet with increased calories and calcium. 3. Precautions given concern increased pain, bleeding, temperature, signs/symptoms of DVT/PE. 4. Medications per home medication was printed, discussed with and given to the patient. 5. Return to clinic-Dr. Reynolds or Louise Mario practitioner-[facility] in 2 weeks. Diagnosis: Term -delivered Condition: Good - Patient Data Vitals - Most Recent: Last Vital Signs Temp 36.5 C 05/05/20 14:52 Pulse 75 05/06/20 03:18 Resp 16 05/06/20 03:18 BP 108/67 05/06/20 03:18 Pulse Ox 100 05/06/20 03:18 Weight - Most Recent: 106.141 kg I&O - Last 24 hours: Intake & Output 05/05/20 05/06/20 05/06/20 22:59 06:59 14:59 Intake Total 0 Balance 0 Med Orders - Current: Current Medications Acetaminophen (Tylenol) 650 mg PO Q4H PRN PRN Reason: mild pain or fever Last Admin: 05/05/20 14:47 Dose: 650 mg Documented by: Benzocaine/Menthol (Dermoplast Pain Relief [place]) 0 gm TOP ASDIRECTED PRN PRN Reason: Perineal Comfort Measure Last Admin: 05/05/20 08:59 Dose: 1 can Documented by: Docusate Sodium (Colace) 100 mg PO BID PRN PRN Reason: Constipation Ibuprofen (Motrin) 600 mg PO Q4H PRN PRN Reason: Mild pain or fever Last Admin: 05/06/20 04:30 Dose: 600 mg Documented by: Prenat Multivit/[place]/Iron/Folic Ac ( Plus Iron) 1 each PO DAILY UMM Last Admin: 05/05/20 08:57 Dose: 1 each Documented by: Donna Johns ([facility]) 1 pad TOP ASDIRECTED PRN PRN Reason: Perineal Comfort Measure Last Admin: 05/05/20 08:57 Dose: 1 tub Documented by: Discontinued Medications Bupivacaine HCl (Sensorcaine-Mpf 0.25%) 10 ml .ROUTE .STK-MED ONE Stop: 05/05/20 00:01 Diphenhydramine HCl (Benadryl) 25 mg IVPUSH Q6H PRN PRN Reason: pruritis Ephedrine Sulfate (Ephedrine Sulfate) 5 mg IVPUSH ASDIRECTED PRN PRN Reason: Hypotension Ephedrine Sulfate (Ephedrine 25 Mg/5 Ml Syringe) 25 mg IV .STK-MED ONE Stop: 05/05/20 00:01 Fentanyl (Sublimaze) 100 mcg EPIDUR Q3H PRN PRN Reason: Pain Last Admin: 05/04/20 11:53 Dose: 100 mcg Documented by: Fentanyl/Bupivacaine HCl (Fentanyl/Bupivacaine/Ns 2 Mcg-0.125% 100 Ml) 100 ml EPIDUR ASDIRECTED PRN PRN Reason: Pain Last Admin: 05/05/20 02:33 Dose: 100 ml Documented by: Ampicillin Sodium 2 gm/ Sodium (Chloride) 100 mls @ 200 mls/hr IV ONETIME ONE Stop: 05/04/20 08:29 Last Admin: 05/04/20 08:13 Dose: 200 mls/hr Documented by: Ampicillin Sodium 1 gm/ Sodium (Chloride) 100 mls @ 200 mls/hr IV Q4H UMM Last Admin: 05/05/20 03:44 Dose: 200 mls/hr Documented by: Oxytocin/Lactated Ringer's (Pitocin In Lr 10 Units/1,000 Ml) 10 unit in 1,000 mls @ 12 mls/hr IV TITRATE UMM; Protocol Last Titration: 05/05/20 03:17 Dose: 3 munits/min, 18 mls/hr Documented by: Oxytocin/Lactated Ringer's (Pitocin In Lr 10 Units/1,000 Ml) 10 unit in 1,000 mls @ 100 mls/hr IV .CONTINUOUS UMM Lactated Ringer's (Ringers, Lactated) 1,000 mls @ 100 mls/hr IV ASDIRECTED UMM Last Admin: 05/04/20 19:13 Dose: 100 mls/hr Documented by: Sodium Chloride (Normal Saline) Confirm Administered Dose 1,000 mls @ as directe d .ROUTE .STK-MED ONE Stop: 05/04/20 19:50 Last Admin: 05/04/20 20:31 Dose: Not Given Documented by: Sodium Chloride (Normal Saline) 1,000 mls @ 100 mls/hr IV ASDIRECTED UMM Last Admin: 05/05/20 03:42 Dose: 50 mls/hr Documented by: Nalbuphine HCl (Nubain) 10 mg IVPUSH Q2H PRN PRN Reason: Pain Ondansetron HCl (Zofran) 4 mg IVPUSH Q4H PRN PRN Reason: Nausea/Vomiting Sodium Chloride (Saline Flush) 10 ml FLUSH ASDIRECTED PRN PRN Reason: Keep Vein Open
[2020-05-06] MEDS: Prenatal Multivitamin with Calcium/Folic Acid/Iron Tab PO SCH (09:43)
== END 2020-05-06 11:06 | disposition home or self-care (01) | DRG 560 ==
LOC: JD.OB 04:44 → OBSVTOIN 05-05 04:44 → JD.OB 05-05 04:45
PROVIDERS: ADMIT Obstetrics & Gynecology; ATTEND Obstetrics & Gynecology
PROC: 10D07Z6 Extraction of Products of Conception, Vacuum, Via Natural or Artificial Opening (ICD-10-PCS; principal; 2020-05-05)
PROC: 10907ZC Drainage of Amniotic Fluid, Therapeutic from Products of Conception, Via Natural or Artificial Opening (ICD-10-PCS; 2020-05-05)
PROC: 3E033VJ Introduction of Other Hormone into Peripheral Vein, Percutaneous Approach (ICD-10-PCS; 2020-05-05)
PROC: 10H07YZ Insertion of Other Device into Products of Conception, Via Natural or Artificial Opening (ICD-10-PCS; 2020-05-05)
PROC: 3E0R3BZ Introduction of Anesthetic Agent into Spinal Canal, Percutaneous Approach (ICD-10-PCS; 2020-05-05)
DX: O99.824 Streptococcus B carrier state complicating childbirth (principal); O76 Abnormality in fetal heart rate and rhythm complicating labor and delivery; Z3A.39 39 weeks gestation of pregnancy; Z37.0 Single live birth; Z87.891 Personal history of nicotine dependence; Z20.828 Contact with and (suspected) exposure to other viral communicable diseases
CPT/HCPCS: 36415; 51702; 59025; 59409; 85025; 86592; 86850; 86900; 86901; A9270-GY; J0171; J0290; J2590; J3010; J3490; J7030; J7050; J7120; U0002

== ENCOUNTER 2020-07-23 17:03 | Emergency (ER) | payer BC ==
[2020-07-23] MEDS ORDERED: HYDROmorphone 1 MG/ML Syringe IVPUSH STA (17:30)
[2020-07-23] MEDS ORDERED: Sodium Chloride 0.9% 1,000 ML IV SCH (17:30)
[2020-07-23] MEDS ORDERED: Ondansetron 4 MG/2 ML SDV IVPUSH ONE ×2 (17:30→19:06)
[2020-07-23] MEDS ORDERED: Sodium Chloride 0.9% 10 ML Syringe FLUSH PRN (17:32)
--- NOTE | 2020-07-23 17:40 | EDM.PDOC ---
ED HPI GENERAL MEDICAL PROBLEM - General Chief Complaint: Abdominal Pain Stated Complaint: LOWER RT ABDOMINAL PAIN Time Seen by Provider: 07/23/20 17:14 Source of Information: Reports: Patient, RN Notes Reviewed History Limitations: Reports: No Limitations - History of Present Illness INITIAL COMMENTS - FREE TEXT/NARRATIVE: Patient is a 25-year-old female who presents to the ED for the evaluation of her right lower abdomen pain. Patient states that about 3 days ago, the pain started near her bellybutton, but now has settled more into her right lower quadrant. She is also complaining of some possible right upper quadrant pain. Patient notes that she last ate at 2 PM, and had a grilled cheese and apple sauce, she states she had to eat this, so her child would eat however she has not really had much of an appetite, she is not complaining of any vomiting, but does have some nausea and notes some looser stools the last few days as well. Patient states that the pain is pretty constant, seems to worsen when she does any sort of movement, and gets better when she lays still. She recently had a child back in April, and states that she just finished up her last menses on July 14. She denies any fevers or chills. She states that it does hurt when she takes a deep breath, she took about 800 mg ibuprofen around 7:30 in the morning. She has a history of a hernia, , and has had her tonsils and adenoids taken out. Treatments DATA OPERATIONS DIRECTOR: Reports: NSAIDS Right Middle Abdomen Pain Score (Numeric/FACES): 5 - Related Data Allergies Allergy/AdvReac Type Severity Reaction Status Date / Time [place] And Derivatives Allergy Anaphylactic Verified 07/23/20 17:24 Shock fruit Allergy Anaphylactic Uncoded 05/04/20 14:41 Shock metal Allergy Hives Uncoded 05/04/20 14:41 Home Meds: Home Meds Acetaminophen/HYDROcodone [Mcnary 325-5 MG] 1 tab PO Q6H PRN #6 tablet 07/23/20 [Rx] Past Medical History HEENT History: Reports: Impaired Vision Gastrointestinal History: Reports: GERD Genitourinary History: Reports: UTI, Recurrent, Other (See Below) Other Genitourinary History: Hx of UTI teenage years, no complaint of UTI in several years WRITING MANAGER History: Reports: , Spontaneous , Other (See Below) Other WRITING MANAGER History: ovarian cyst, pelvic pain, dyspareunia Musculoskeletal History: Reports: Fracture Other Musculoskeletal History: fx right arm and wrist Neurological History: Reports: Migraines Psychiatric History: Reports: Anxiety, Bipolar, Depression, PTSD Other Psychiatric History: possibly bipolar, no official diagnosis - Infectious Disease History Infectious Disease History: Reports: MRSA Other Infectious Disease History: 01/20/2010, pt stated she doesn't know if she ever got tested again to be decolonized. - Past Surgical History HEENT Surgical History: Reports: Adenoidectomy, Naso-Sinus Surgery, Tonsillectomy Other HEENT Surgeries/Procedures: sinus surgery GI Surgical History: Reports: Hernia, Abdominal Other GI Surgeries/Procedures: Mesh surgery when pt 15 yrs old Female Surgical History: Reports: Section, Oophorectomy Other Female Surgeries/Procedures: right ovary Social & Family History - Family History Family Medical History: No Pertinent Family History - Tobacco Use Tobacco Use Status *Q: Never Tobacco User - Caffeine Use Caffeine Use: Reports: Coffee - Recreational Drug Use Recreational Drug Use: No - Living Situation & Occupation Living situation: Reports: Single Occupation: Employed ED ROS GENERAL - Review of Systems Review Of Systems: Comprehensive ROS is negative, except as noted in HPI. ED EXAM, GI/ABD - Physical Exam Exam: See Below Exam Limited By: No Limitations General Appearance: Alert, WD/WN, No Apparent Distress Respiratory/Chest: No Respiratory Distress, Lungs Clear, Normal Breath Sounds, No Accessory Muscle Use, Chest Non-Tender Cardiovascular: Normal Peripheral Pulses, Regular Rate, Rhythm, No Edema GI/Abdominal Exam: Normal Bowel Sounds, Soft, No Distention, No Mass, Tender (RLQ with rebound, slight RUQ tenderness ) Extremities: Normal Inspection, Normal Capillary Refill Neurological: Alert, Oriented, Normal Cognition, No Motor/Sensory Deficits Psychiatric: Normal Affect, Normal Mood Skin Exam: Warm, Dry, Intact, Normal Color, No Rash Course - Vital Signs Last Recorded V/S: Last Vital Signs Temp 99.9 F 07/23/20 17:15 Pulse 72 07/23/20 17:15 Resp 20 07/23/20 17:15 BP 99/60 07/23/20 17:15 Pulse Ox 96 07/23/20 17:15 - Orders/Labs/Meds Orders: Active Orders 24 hr Category Date Time Status Peripheral IV Care [RC] . DIRECTED Care 07/23/20 17:32 Ordered UA W/MICROSCOPIC [URIN] Stat Lab 07/23/20 17:30 Ordered Sodium Chloride 0.9% [Normal Saline] 1,000 ml Med 07/23/20 17:30 Ordered IV ASDIRECTED Sodium Chloride 0.9% [Saline Flush] Med 07/23/20 19:00 Active 10 ml FLUSH ASDIRECTED Sodium Chloride 0.9% [Saline Flush] Med 07/23/20 17:32 Ordered 10 ml FLUSH ASDIRECTED PRN Peripheral IV Insertion Adult [OM.PC] Routine Oth 07/23/20 17:32 Ordered Medication Orders Sodium Chloride (Normal Saline) 1,000 mls @ 999 mls/hr IV ASDIRECTED UMM Last Admin: 07/23/20 17:38 Dose: 999 mls/hr Documented by: FULTCON Sodium Chloride (Saline Flush) 10 ml FLUSH ASDIRECTED PRN PRN Reason: Keep Vein Open Last Admin: 07/23/20 17:41 Dose: 10 ml Documented by: FULTCON Sodium Chloride (Saline Flush) 10 ml FLUSH ASDIRECTED UMM Last Admin: 07/23/20 19:17 Dose: 10 ml Documented by: JANAE Labs: Laboratory Tests 07/23/20 07/23/20 07/23/20 Range/Units 17:30 17:30 17:30 WBC 5.71 (3.98-10.04) K/mm3 RBC 5.00 (3.98-5.22) M/mm3 Hgb 13.2 D (11.2-15.7) gm/dl Hct 40.6 (34.1-44.9) % MCV 81.2 (79.4-94.8) fl MCH 26.4 (25.6-32.2) pg MCHC 32.5 (32.2-35.5) g/dl RDW Std Deviation 42.8 (36.4-46.3) fL Plt Count 367 D (182-369) K/mm3 MPV 9.0 L (9.4-12.3) fl Neutrophils % (Manual) 36 L (40-60) % Band Neutrophils % 0 (0-10) % Lymphocytes % (Manual) 59 H (20-40) % Atypical Lymphs % 0 % Monocytes % (Manual) 5 (2-10) % Eosinophils % (Manual) 0 L (0.7-5.8) % Basophils % (Manual) 0 L (0.1-1.2) Platelet Estimate Adequate RBC Morph Comment Normal Sodium 142 (136-145) mEq/L Potassium 4.1 (3.5-5.1) mEq/L Chloride 106 (98-107) mEq/L Carbon Dioxide 27 (21-32) mEq/L Anion Gap 13.1 (5-15) BUN 15 (7-18) mg/dL Creatinine 0.9 (0.55-1.02) mg/dL Est Cr Clr Drug Dosing 83.23 mL/min Estimated GFR (MDRD) > 60 (>60) mL/min BUN/Creatinine Ratio 16.7 (14-18) Glucose 82 (74-106) mg/dL Calcium 9.0 (8.5-10.1) mg/dL Total Bilirubin 0.1 L (0.2-1.0) mg/dL GGT 20 (5-55) U/L AST 25 (15-37) U/L ALT 47 (14-59) U/L Alkaline Phosphatase 97 (46-116) U/L C-Reactive Protein 0.2 (<1.0) mg/dL Total Protein 7.6 (6.4-8.2) g/dl Albumin 4.0 (3.4-5.0) g/dl Globulin 3.6 gm/dL Albumin/Globulin Ratio 1.1 (1-2) HCG, Qual Negative (NEGATIVE) Influenza Type A RNA (NEGATIVE) Influenza Type B RNA (NEGATIVE) SARS-CoV-2 RNA (RM) (NEGATIVE) 07/23/20 Range/Units 18:18 WBC (3.98-10.04) K/mm3 RBC (3.98-5.22) M/mm3 Hgb (11.2-15.7) gm/dl Hct (34.1-44.9) % MCV (79.4-94.8) fl MCH (25.6-32.2) pg MCHC (32.2-35.5) g/dl RDW Std Deviation (36.4-46.3) fL Plt Count (182-369) K/mm3 MPV (9.4-12.3) fl Neutrophils % (Manual) (40-60) % Band Neutrophils % (0-10) % Lymphocytes % (Manual) (20-40) % Atypical Lymphs % % Monocytes % (Manual) (2-10) % Eosinophils % (Manual) (0.7-5.8) % Basophils % (Manual) (0.1-1.2) Platelet Estimate RBC Morph Comment Sodium (136-145) mEq/L Potassium (3.5-5.1) mEq/L Chloride (98-107) mEq/L Carbon Dioxide (21-32) mEq/L Anion Gap (5-15) BUN (7-18) mg/dL Creatinine (0.55-1.02) mg/dL Est Cr Clr Drug Dosing mL/min Estimated GFR (MDRD) (>60) mL/min BUN/Creatinine Ratio (14-18) Glucose (74-106) mg/dL Calcium (8.5-10.1) mg/dL Total Bilirubin (0.2-1.0) mg/dL GGT (5-55) U/L AST (15-37) U/L ALT (14-59) U/L Alkaline Phosphatase (46-116) U/L C-Reactive Protein (<1.0) mg/dL Total Protein (6.4-8.2) g/dl Albumin (3.4-5.0) g/dl Globulin gm/dL Albumin/Globulin Ratio (1-2) HCG, Qual (NEGATIVE) Influenza Type A RNA Negative (NEGATIVE) Influenza Type B RNA Negative (NEGATIVE) SARS-CoV-2 RNA (RM) Negative (NEGATIVE) Meds: Medications Generic Name Dose Route Start Last Admin Trade Name Freq PRN Reason Stop Dose Admin Sodium Chloride 1,000 mls @ 999 mls/hr 07/23/20 17:30 07/23/20 17:38 Normal Saline IV 999 mls/hr ASDIRECTED UMM Administration Sodium Chloride 10 ml 07/23/20 17:32 07/23/20 17:41 Saline Flush FLUSH 10 ml ASDIRECTED PRN Administration Keep Vein Open Sodium Chloride 10 ml 07/23/20 19:00 07/23/20 19:17 Saline Flush FLUSH 10 ml ASDIRECTED UMM Administration Discontinued Medications Generic Name Dose Route Start Last Admin Trade Name Freq PRN Reason Stop Dose Admin Hydromorphone HCl 1 mg 07/23/20 17:30 07/23/20 17:39 Dilaudid IVPUSH 07/23/20 17:31 1 mg ONETIME STA Administration Iopamidol 100 ml 07/23/20 18:59 07/23/20 19:17 Isovue-300 (61%) IVPUSH 07/23/20 19:00 100 ml ONETIME ONE Administration Ondansetron HCl 4 mg 07/23/20 17:30 07/23/20 17:38 Zofran IVPUSH 07/23/20 17:31 4 mg ONETIME ONE Administration Ondansetron HCl 4 mg 07/23/20 19:06 07/23/20 19:10 Zofran IVPUSH 07/23/20 19:07 4 mg ONETIME ONE Administration - Re-Assessments/Exams Free Text/Narrative Re-Assessment/Exam: 07/23/20 17:40 Patient presents to the ED for her right lower quadrant abdominal pain, very suspicious for appendicitis. We will get some labs, give her some IV pain meds and nausea meds, get abdomen pelvis CT with IV and oral contrast. 07/23/20 19:25 Pt has a citrus allergy, so the CT was performed with IV contrast only. CBC and CMP are unremarkable, the patient's CRP is also undetectably low. The patient's abdomen CT has come back, the majority of the appendix does look normal however the distal appendix shows a evidence of an appendicolith. Very distal aspect of the appendix is minimally prominent as compared to other portions of the appendix, findings are only minimally suggestive of early distal appendicitis. Please correlate if patient has elevated white count correlating symptoms. Other portions of the CT exam demonstrate no acute abnormalities. The patient's physical exam does correlate with these findings however her white count is within normal limits, CRP is within normal limits. I will go ahead and call Dr. Avendano as she did initially review the CT and did not feel there are any findings of appendicitis, I will see if she can follow-up with her in clinic tomorrow for recheck and to make sure everything is getting better rather than worsening. Patient will be given strict return precautions. CT also did show quite a bit of stool throughout the colon as well. 07/23/20 19:43 The patient would like to go home tonight, and try things out and follow-up with Dr. Avendano in clinic tomorrow, states she already has MiraLAX at home, so she will use this for a bowel cleanse. She has nausea medications at home. I am going to provide her with just a few tablets of Mcnary however again I did go over strict return precautions for her if this does not seem to control the pain with just a few doses she is to return immediately to the ER, patient verbalized understanding. 07/23/20 19:44 The patient's COVID-19 screen is negative. Departure - Departure Time of Disposition: 19:44 Disposition: Home, Self-Care 01 Condition: Good Clinical Impression: RLQ abdominal pain - Discharge Information *PRESCRIPTION DRUG MONITORING PROGRAM REVIEWED*: Yes *COPY OF PRESCRIPTION DRUG MONITORING REPORT IN PATIENT TERESA: No Instructions: Appendicitis, Adult, [id number] Referrals: Johnathon Caballero MD [Primary Care Provider] - Forms: ED Department Discharge Additional Instructions: You were seen in this ER for your right lower quadrant abdominal pain. In the ER demonstrated labs that were unremarkable for any acute infectious process. Your CT however was consistent with the start of appendicitis within the very distal aspect of your appendix, this again is compatible with a very early appendicitis. Your case was discussed with the surgeon on-call, Dr. Avendano, she did review your CT at today's visit and your laboratory evaluation as well. She has agreed to evaluate you in her clinic, tomorrow for ongoing management. Please call [phone] and tell her corporate receptionist that you were in the ER last night, and that you need to be seen today for re-examination. You were given a prescription for a strong pain medication, hydrocodone/acetaminophen 5/325 mg, please take 1 tab every 6 hours as needed for pain not relieved by Tylenol or ibuprofen alone. Please note this medication does contain Tylenol in it, so do not take more than 4000 mg in a 24- hour time span. These medications can be addictive, so please take as few as possible to achieve adequate pain control. These meds can also be quite constipating, recommend that you increase your oral fluid intake and take a stool softener like MiraLAX while taking these medications. Do not drive while taking this medication. Your CT demonstrated also that you had quite a bit of stool throughout your colon, highly recommend you take a large dose of MiraLAX or another stool softener tonight, to help provide more of a bowel cleanse to see if this does not also help some of your abdomen pain. Please try to avoid the use of ibuprofen tonight, as this medication can theoretically thin your blood. Please also stick to more of a clear liquid diet, and try not to have anything food meza by mouth after midnight tonight, as it is highly unknown if you are going to need to have to go to surgery tomorrow, or this can be treated in a different fashion with antibiotics. You indicated that you already had Zofran at home, you may take 1 tablet every 6-8 hours as needed for further nausea, I would recommend not taking any more of this medication until about 10 or 11 tonight as you adjust got a dose in the ER at around 5 or 6 PM. Please do not hesitate to return to the ER if your condition changes or worsens in any way, appendicitis can be life-threatening; however your appendix was not enlarged, and is not thought to be on the verge of perforation overnight. Nonetheless do not hesitate to return to the ER if symptoms change or worsen Sepsis Event Note (ED) - Evaluation Sepsis Screening Result: No Definite Risk - Focused Exam Vital Signs: Vital Signs Temp Pulse Resp BP Pulse Ox 07/23/20 17:15 99.9 F 72 20 99/60 96 - My Orders Last 24 Hours: My Active Orders 07/23/20 17:30 UA W/MICROSCOPIC [URIN] Stat Sodium Chloride 0.9% [Normal Saline] 1,000 ml IV ASDIRECTED 07/23/20 17:32 Peripheral IV Care [RC] . DIRECTED Sodium Chloride 0.9% [Saline Flush] 10 ml FLUSH ASDIRECTED PRN Peripheral IV Insertion Adult [OM.PC] Routine 07/23/20 19:00 Sodium Chloride 0.9% [Saline Flush] 10 ml FLUSH ASDIRECTED - Assessment/Plan Last 24 Hours: My Active Orders 07/23/20 17:30 UA W/MICROSCOPIC [URIN] Stat Sodium Chloride 0.9% [Normal Saline] 1,000 ml IV ASDIRECTED 07/23/20 17:32 Peripheral IV Care [RC] . DIRECTED Sodium Chloride 0.9% [Saline Flush] 10 ml FLUSH ASDIRECTED PRN Peripheral IV Insertion Adult [OM.PC] Routine 07/23/20 19:00 Sodium Chloride 0.9% [Saline Flush] 10 ml FLUSH ASDIRECTED
[2020-07-23] MEDS ORDERED: Iopamidol 612 MG/ML 100 ML Bottle IVPUSH ONE (18:59)
[2020-07-23] MEDS ORDERED: Sodium Chloride 0.9% 10 ML Syringe FLUSH SCH (19:00)
[2020-07-23 19:05] LABS: CORONAVIRUS COVID-19 NAA NEGATIVE (NEGATIVE)
--- NOTE | 2020-07-23 19:25 | CT ---
CT abdomen and pelvis Technique: Multiple axial sections were obtained from above the dome of the diaphragm inferiorly through the pubic symphysis. Intravenous contrast was utilized. No oral contrast has been given. Delayed images were also obtained to the bladder. Reconstructed coronal and sagittal images were obtained. Comparison: No prior CT abdomen or pelvis study is available. Findings: Visualized lung bases show nothing acute. Liver shows no focal parenchymal abnormality. Spleen appears within normal limits. Adrenal glands show no nodule. Pancreas shows no discrete abnormality. Kidneys show symmetric contrast enhancement with no hydronephrosis or mass being seen. Gallbladder contains no calcified gallstones. Abdominal aorta shows no aneurysm. No retroperitoneal adenopathy is seen. No pelvic mass or adenopathy is identified. Delayed images show contrast within the distal ureters and within the bladder. Appendix is seen. The proximal appendix shows normal air but the distal appendix shows evidence of an appendicolith with very slight prominence of the very distal appendix. Findings are only minimally prominent for possible early distal appendicitis. No additional abnormality is appreciated. Bone window settings were reviewed which appear within normal limits for the patient's age. Impression: 1. Majority of the appendix appears normal. Distal appendix shows evidence of an appendicolith. Very distal aspect of the appendix is minimally prominent as compared to other portions of the appendix. Findings are only minimally suggestive of early distal appendicitis. Please correlate if patient has elevated white count and correlating symptoms. 2. Other portions of the CT exam of the abdomen and pelvis shows no other acute abnormality. Diagnostic code #3
== END 2020-07-23 20:10 | disposition home or self-care (01) ==
LOC: JD.ED 17:03
DX: R10.31 Right lower quadrant pain (principal); Z20.822 Contact with and (suspected) exposure to COVID-19; Z91.018 Allergy to other foods; Z91.048 Other nonmedicinal substance allergy status
CPT/HCPCS: 0240U; 36415; 74177; 80053; 82977; 84703; 85007; 85027; 86140; 96374; 96375; 96376; 99284; J1170; J2405; J7030; Q9967

== ENCOUNTER 2020-07-29 09:26 | Day surgery (SDC) | payer BC ==
[~2020-07-29 09:26] MED LIST changes: -Dexamethasone 4 MG/ML 5 ML MDV ONE; -Ketorolac 30 MG/ML SDV ONE; -Lactated Ringers 0 ML ONE; -Lidocaine 1% PF 2 ML SDV ONE; -Midazolam 1 MG/ML 2 ML SDV ONE; -Ondansetron 4 MG/2 ML SDV ONE; -Propofol 200 MG/20 ML SDV ONE; -Rocuronium 50 MG/5 ML Vial ONE; -ceFAZolin 1 GM Vial ONE; -fentaNYL 250 MCG/5 ML SDV ONE
[2020-07-29] MEDS ORDERED: Bupivacaine 0.5%/EPINEPHrine 1:200,000 50 ML MDV ONE (09:37)
[2020-07-29] MEDS ORDERED: Lidocaine 1% with EPINEPHrine 1:100,000 20 ML MDV ONE ×2 (09:37→09:49)
--- NOTE | 2020-07-29 09:37 | PCM.PREANE ---
Preanesthetic Assessment - Procedure Proposed Procedure: laparoscopic appendectomy - Anesthesia/Transfusion/Family Hx Anesthesia History: Prior Anesthesia Reaction Other Type of Anesthesia Reaction Comment: Pt states she woke up during her adnoid surgery, they "put her back under" Family History of Anesthesia Reaction: No Transfusion History: Prior Transfusion Without Reaction - Review of Systems General: No Symptoms Pulmonary: No Symptoms Cardiovascular: No Symptoms Gastrointestinal: Abdominal Pain (RLQ) Neurological: No Symptoms Other: Reports: None - Physical Assessment NPO Status Date: 07/28/20 NPO Status Time: 00:00 Height: 1.63 m Weight: 89.3 kg ASA Class: 2 Mental Status: Alert & Oriented x3 Airway Class: Mallampati = 1 Dentition: Reports: Normal Dentition Thyro-Mental Finger Breadths: 3 Mouth Opening Finger Breadths: 3 ROM/Head Extension: Full Lungs: Clear to Auscultation, Normal Respiratory Effort Cardiovascular: Regular Rate, Regular Rhythm - Lab Values: Laboratory Last Values SARS-CoV-2 RNA (RM) Negative (NEGATIVE) 07/28/20 13:30 - Allergies Allergies/Adverse Reactions: Allergies Allergy/AdvReac Type Severity Reaction Status Date / Time Tama And Derivatives Allergy Anaphylactic Verified 07/23/20 17:24 Shock fruit Allergy Anaphylactic Uncoded 05/04/20 14:41 Shock metal Allergy Hives Uncoded 05/04/20 14:41 - Blood Blood Available: No Product(s) Available: None - Anesthesia Plan Pre-Op Medication Ordered: None - Acknowledgements Anesthesia Type Planned: General Anesthesia Pt an Appropriate Candidate for the Planned Anesthesia: Yes Alternatives and Risks of Anesthesia Discussed w Pt/Guardian: Yes Pt/Guardian Understands and Agrees with Anesthesia Plan: Yes PreAnesthesia Questionnaire HEENT History: Reports: Impaired Vision Cardiovascular History: Reports: None Respiratory History: Reports: None Gastrointestinal History: Reports: GERD Genitourinary History: Reports: UTI, Recurrent, Other (See Below) Other Genitourinary History: Hx of UTI teenage years, no complaint of UTI in several years INVENTORY ASSOCIATE History: Reports: , Spontaneous , Other (See Below) Other OB/BYN History: ovarian cyst, pelvic pain, dyspareunia Musculoskeletal History: Reports: Fracture Other Musculoskeletal History: fx right arm and wrist Neurological History: Reports: Migraines Psychiatric History: Reports: Anxiety, Bipolar, Depression, PTSD Other Psychiatric History: possibly bipolar, no official diagnosis Endocrine/Metabolic History: Reports: None Hematologic History: Reports: None Immunologic History: Reports: None Oncologic (Cancer) History: Reports: None Dermatologic History: Reports: None - Infectious Disease History Infectious Disease History: Reports: MRSA Other Infectious Disease History: 01/20/2010, pt stated she doesn't know if she ever got tested again to be decolonized. - Past Surgical History HEENT Surgical History: Reports: Adenoidectomy, Naso-Sinus Surgery, Tonsillectomy Other HEENT Surgeries/Procedures: sinus surgery GI Surgical History: Reports: Hernia, Abdominal Other GI Surgeries/Procedures: Mesh surgery when pt 15 yrs old Female Surgical History: Reports: Section, Oophorectomy Other Female Surgeries/Procedures: right ovary - SUBSTANCE USE Tobacco Use Status *Q: Former Tobacco User Tobacco Use Within Last Twelve Months: No Second Hand Smoke Exposure: No Days Per Week of Alcohol Use: 1 Number of Drinks Per Day: 0 Total Drinks Per Week: 0 Recreational Drug Use History: No - HOME MEDS Home Medications: Home Meds Acetaminophen/HYDROcodone [[place] 325-5 MG] 1 tab PO Q6H PRN #6 tablet 07/23/20 [Rx] - CURRENT (IN HOUSE) MEDS Current Meds: Current Medications Lactated Ringer's (Ringers, Lactated) 1,000 mls @ 125 mls/hr IV ASDIRECTED UMM Stop: 07/29/20 23:00 Lidocaine/Sodium Bicarbonate (Buffered Lidocaine 1% In Ns 8.4%) 0.25 ml IDERM ONETIME PRN PRN Reason: Prior to IV Start Stop: 07/29/20 18:00 Sodium Chloride (Saline Flush) 10 ml FLUSH ASDIRECTED PRN PRN Reason: Keep Vein Open Stop: 07/29/20 18:00
[2020-07-29] MEDS ORDERED: Midazolam 1 MG/ML 2 ML SDV ONE (09:44)
[2020-07-29] MEDS ORDERED: Ondansetron 4 MG/2 ML SDV ONE (09:44)
[2020-07-29] MEDS ORDERED: Rocuronium 50 MG/5 ML Vial ONE (09:44)
[2020-07-29] MEDS ORDERED: fentaNYL 250 MCG/5 ML SDV ONE (09:45)
[2020-07-29] MEDS ORDERED: Ketorolac 30 MG/ML SDV ONE (09:45)
[2020-07-29] MEDS ORDERED: Propofol 200 MG/20 ML SDV ONE (09:45)
[2020-07-29] MEDS ORDERED: Lidocaine 1% 4 ML ONE (09:45)
[2020-07-29] MEDS ORDERED: ceFAZolin 1 GM Vial ONE (09:50)
[2020-07-29] MEDS ORDERED: Lactated Ringers 1,000 ML ONE (10:51)
--- NOTE | 2020-07-29 11:36 | PCM.OPNOTE ---
- General Post-Op/Procedure Note Date of Surgery/Procedure: 07/29/20 Operative Procedure(s): laparoscopic appendectomy Findings: normal appearing appendix Pre Op Diagnosis: Right lower quadrant abdominal pain Post-Op Diagnosis: same Anesthesia Technique: General ET Tube, Local Primary Surgeon: Tamy Child Anesthesia Provider: Woody Gordon Pathology: appendix Fluid Replacement, Intraop: 1,200 EBL in mLs: 0 Complications: none apparent Condition: Good
--- NOTE | 2020-07-29 11:41 | PCM.PRNOTE ---
- Free Text/Narrative Note: Operative Report Date of surgery: July 29, 2020 Preoperative diagnosis: Right lower quadrant abdominal pain Postoperative diagnosis: same Procedure performed: laparoscopic appendectomy Surgeon: Dr. Tamy Child Anesthesia: General Customer Service Engineer: Woody Gordon CRNA Estimated blood loss: 5 mL IV fluids: 1200 mL Urine output: 0 Drains and lines: None Findings: Normal appearing appendix Pathology: Appendix Indications for procedure: The patient is a 25-year-old female who complained of right lower quadrant abdominal pain. She was seen in the emergency department and found to have an appendicolith with a mildly prominent distal appendix on CT scan. She was seen in clinic for follow-up. She was treated for constipation which only improved some of her symptoms. She continues had right lower quadrant abdominal pain. We discussed a laparoscopic appendectomy with possible conversion to open. We discussed risks of infection, bleeding, and other intra- abdominal injury. The patient was agreeable and her written consent was obtained. Description of procedure: The patient was taken back to the operating room and placed in supine position on the operating table. SCD boots were in place and functional prior to the start of the procedure. Preoperative antibiotics were administered according to SCIP guidelines. The patient had successful induction of general anesthesia and was intubated without difficulty. Pt was then prepped and draped in standard surgical fashion and a timeout was performed. We began by making a 5 mm incision in the left upper quadrant and inserting a camera into the abdomen using a Visiport technique. We then attached insufflation and the abdomen was insufflated to 15 mmHg. There was no evidence of any injury created from entry into the abdomen. A TA P block was performed using mixed 1% lidocaine with epinephrine and 0.5% bupivacaine with epinephrine . We then proceeded to place a 5 mm port under direct visualization in the left lower quadrant. The periumbilical mesh was then palpated and a position selected more superior than the mesh on the midline abdomen. A 15 cm incision was then made in this area and a 12 mm port was inserted into the abdomen. We then inserted an additional 5 mm port in the suprapubic midline. The patient was then positioned in Trendelenburg with right side elevated and we proceeded to mobilize the appendix. The appendix appeared normal. The mesoappendix dissected from the appendix. The appendix was then taken with a tissue staple load. The mesoappendix was then taken with a vascular staple load. The specimen was in place in the Endo Catch bag. The appendix was then withdrawn through the midline epigastric port and the fascia closed using an Endo Close device and 0 Vicryl [id number] suture. We then inspected the site of the appendectomy. There was no active bleeding at the end of this case. The abdomen was then desufflated. The skin was then reapproximated at all port sites using a 4-0 Monocryl subcutaneous stitch and covered with Dermabond surgical glue. The patient tolerated the procedure. She was extubated and transported to the PACU in stable condition. All sponge and needle counts were correct. Tamy Child MD General surgery
[2020-07-29] MEDS ORDERED: fentaNYL 100 MCG/2 ML SDV IVPUSH PRN (11:49)
--- NOTE | 2020-07-29 14:07 | PCM48HPAN ---
Post Anesthesia Note - EVALUATION WITHIN 48HRS OF ANESTHETIC Vital Signs in Normal Range: Yes Patient Participated in Evaluation: Yes Respiratory Function Stable: Yes Airway Patent: Yes Cardiovascular Function Stable: Yes Hydration Status Stable: Yes Pain Control Satisfactory: Yes Nausea and Vomiting Control Satisfactory: Yes Mental Status Recovered: Yes ( A BIT DIZZY WHILE SITTING IN CHAIR) Vital Signs: Last Vital Signs Temp 97.7 F 07/29/20 11:44 Pulse 65 07/29/20 13:00 Resp 16 07/29/20 13:00 BP 97/51 L 07/29/20 13:00 Pulse Ox 95 07/29/20 13:00
--- NOTE | 2020-07-29 14:11 | PCM.POSTAN ---
POST ANESTHESIA ASSESSMENT - MENTAL STATUS Mental Status: Alert, Oriented - VITAL SIGNS Vital Signs: Last Vital Signs Temp 97.7 F 07/29/20 11:44 Pulse 65 07/29/20 13:00 Resp 16 07/29/20 13:00 BP 97/51 L 07/29/20 13:00 Pulse Ox 95 07/29/20 13:00 - RESPIRATORY Respiratory Status: Respiratory Rate WNL, Airway Patent, O2 Saturation Stable - CARDIOVASCULAR CV Status: Pulse Rate WNL, Blood Pressure Stable - GASTROINTESTINAL GI Status: No Symptoms - PAIN Pain Score: 0 - POST OP HYDRATION Hydration Status: Adequate & Stable - OBSERVATIONS Free Text/Narrative:: Documented for GLefor HISTOLOGIC AIDE- Patient in PAXU at 1144-
== END 2020-07-29 14:11 | disposition home or self-care (01) ==
LOC: JD.SDS 09:26
PROVIDERS: ATTEND Surgery
DX: K35.80 Unspecified acute appendicitis (principal); K59.00 Constipation, unspecified; Z91.018 Allergy to other foods; Z79.899 Other long term (current) drug therapy; Z98.890 Other specified postprocedural states; Z87.891 Personal history of nicotine dependence; Z01.812 Encounter for preprocedural laboratory examination; Z91.048 Other nonmedicinal substance allergy status; Z20.822 Contact with and (suspected) exposure to COVID-19
CPT/HCPCS: 44970; 81025; 87635; J0690; J1885; J2370; J2405; J2704; J2710; J3010; J3490; J7120; 00840; J2250; U0002

== ENCOUNTER 2023-07-31 06:25 | Emergency (ER) | payer BC, OTHER ==
[2023-07-31 07:32] LABS: CORONAVIRUS COVID-19 NAA NEGATIVE (NEGATIVE); INFLUENZA A NAA NEGATIVE (NEGATIVE); RESPIRATORY SYNCYTIAL VIR NAA NEGATIVE (NEGATIVE)
[2023-07-31] MEDS: Ondansetron 4 MG/2 ML SDV IVPUSH ONE (07:40)
[2023-07-31] MEDS: Sodium Chloride 0.9% 1,000 ML IV ONE (07:42)
[2023-07-31] MEDS: Sodium Chloride 0.9% 10 ML Syringe FLUSH PRN (07:42)
[2023-07-31 07:56] LABS: BASOPHILS PERCENT AUTO 0.8 % (0.0-1.0); EOSINOPHILS PERCENT AUTO 0.4 % (0.0-6.0); HEMATOCRIT 40.1 % (37.0-47.0); HEMOGLOBIN 13.5 gm/dl (12.0-16.0); IMMATURE GRAN ABSOLUTE AUTO 0.01 K/mm3 (0.00-0.05); IMMATURE GRAN PERCENT AUTO 0.2 % (0.0-0.4); LYMPHOCYTES ABSOLUTE AUTO 1.4 K/mm3 (1.0-4.8); LYMPHOCYTES PERCENT AUTO 27.2 % (24.0-44.0); MEAN CORPUSCULAR HEMOGLOBIN 28.1 pg (28.0-32.0); MEAN CORPUSCULAR HGB CONC 33.7 g/dl (32.0-36.0); MEAN CORPUSCULAR VOLUME 83.4 fl (83.0-99.0); MONOCYTES ABSOLUTE AUTO 0.3 K/mm3 (0.0-0.8); MONOCYTES PERCENT AUTO 5.3 % (0.0-8.0); NEUTROPHILS ABSOLUTE AUTO 3.5 K/mm3 (1.8-7.7); NEUTROPHILS PERCENT AUTO 66.1 % (41.0-71.0); PLATELET COUNT,PLT 335 K/mm3 (150-400); RED BLOOD CELL COUNT 4.81 M/mm3 (4.10-5.30)
[2023-07-31 08:42] LABS: ALBUMIN 3.8 g/dl (3.4-5.0); ANION GAP 13.4 (5-15); BILIRUBIN TOTAL 0.4 mg/dL (0.2-1.0); BUN/CREATININE RATIO 11.3 (14-18); CALCIUM 9.5 mg/dL (8.5-10.1); CREATININE 0.8 mg/dL (0.55-1.02); EST CRCL DRUG DOSING (CG) 91.21 mL/min; POTASSIUM,K 4.4 mEq/L (3.5-5.1); PROTEIN TOTAL,TP 7.6 g/dl (6.4-8.2)
[2023-07-31] MEDS: Sodium Chloride 0.9% 1,000 ML IV SCH (10:52)
[2023-07-31 11:58] LABS: APPEARANCE,URINE CLEAR (Clear); BILIRUBIN,URINE NEGATIVE (Negative); COLOR,URINE YELLOW (Yellow); GLUCOSE,URINE NEGATIVE (Negative); KETONES,URINE NEGATIVE (Negative); LEUKOCYTE ESTERASE,URINE NEGATIVE (Negative); NITRITE,URINE NEGATIVE (Negative); OCCULT BLOOD,URINE NEGATIVE (Negative); PROTEIN,URINE NEGATIVE (Negative); UROBILINOGEN,URINE 0.2 (0.2-1.0)
[2023-07-31 12:19] LABS: BACTERIA,URINE FEW /hpf (FEW); EPITHELIAL CELLS,URINE 0-5 /hpf (0-5); MUCUS,URINE FEW /hpf (FEW); RBC,URINE 0-5 /hpf (0-5); WBC,URINE 0-5 /hpf (0-5)
== END 2023-07-31 13:06 | disposition home or self-care (01) ==
LOC: JD.ED 06:25
DX: O21.0 Mild hyperemesis gravidarum (principal); O23.41 Unspecified infection of urinary tract in pregnancy, first trimester; O99.281 Endocrine, nutritional and metabolic diseases complicating pregnancy, first trimester; E86.0 Dehydration; O99.891 Other specified diseases and conditions complicating pregnancy; M54.2 Cervicalgia; R55 Syncope and collapse; R51.9 Headache, unspecified; Z3A.01 Less than 8 weeks gestation of pregnancy; Z91.018 Allergy to other foods; Z91.048 Other nonmedicinal substance allergy status; Z79.899 Other long term (current) drug therapy
CPT/HCPCS: 0241U; 36415; 70450; 72125; 76817; 80053; 81001; 83690; 83735; 84484; 84702; 85025; 96361; 96374; 99284; J2405; J3490; J7030

== ENCOUNTER 2023-09-26 10:03 | Emergency (ER) | payer OTHER ==
[2023-09-26] MEDS: Sodium Chloride 0.9% 1,000 ML IV ONE ×2 (10:44→12:28)
[2023-09-26] MEDS: Ondansetron 4 MG/2 ML SDV IVPUSH ONE (10:44)
[2023-09-26] MEDS: Sodium Chloride 0.9% 10 ML Syringe FLUSH PRN (10:45)
[2023-09-26 10:51] LABS: BASOPHILS PERCENT AUTO 0.3 % (0.0-1.0); EOSINOPHILS PERCENT AUTO 0.3 % (0.0-6.0); HEMATOCRIT 38.1 % (37.0-47.0); HEMOGLOBIN 13.3 gm/dl (12.0-16.0); IMMATURE GRAN ABSOLUTE AUTO 0.01 K/mm3 (0.00-0.05); IMMATURE GRAN PERCENT AUTO 0.2 % (0.0-0.4); LYMPHOCYTES ABSOLUTE AUTO 1.6 K/mm3 (1.0-4.8); MEAN CORPUSCULAR HGB CONC 34.9 g/dl (32.0-36.0); MEAN CORPUSCULAR VOLUME 83.2 fl (83.0-99.0); MEAN PLATELET VOLUME 8.9 fl (9.4-12.3); MONOCYTES ABSOLUTE AUTO 0.4 K/mm3 (0.0-0.8); MONOCYTES PERCENT AUTO 6.5 % (0.0-8.0); NEUTROPHILS ABSOLUTE AUTO 4.3 K/mm3 (1.8-7.7); NEUTROPHILS PERCENT AUTO 67.7 % (41.0-71.0); PLATELET COUNT,PLT 278 K/mm3 (150-400); RED BLOOD CELL COUNT 4.58 M/mm3 (4.10-5.30); WHITE BLOOD CELL COUNT,WBC 6.29 K/mm3 (3.9-11.3)
[2023-09-26 11:13] LABS: A/G RATIO 0.8 (1-2); ALBUMIN 3.1 g/dl (3.4-5.0); ANION GAP 15.4 (5-15); BILIRUBIN TOTAL 0.3 mg/dL (0.2-1.0); BUN/CREATININE RATIO 13.3 (14-18); C-REACTIVE PROTEIN 1.56 mg/dL (<0.30); CALCIUM 8.9 mg/dL (8.5-10.1); CREATININE 0.6 mg/dL (0.55-1.02); EST CRCL DRUG DOSING (CG) 121.62 mL/min; POTASSIUM,K 4.4 mEq/L (3.5-5.1); PROTEIN TOTAL,TP 6.8 g/dl (6.4-8.2)
[2023-09-26] MEDS: Promethazine 25 MG in Sodium Chloride 0.9% 50 ML IV ONE (11:18)
[2023-09-26 11:27] LABS: CORONAVIRUS COVID-19 NAA NEGATIVE (NEGATIVE); INFLUENZA A NAA NEGATIVE (NEGATIVE); RESPIRATORY SYNCYTIAL VIR NAA NEGATIVE (NEGATIVE)
[2023-09-26 13:08] LABS: APPEARANCE,URINE CLEAR (Clear); BILIRUBIN,URINE NEGATIVE (Negative); COLOR,URINE YELLOW (Yellow); GLUCOSE,URINE NEGATIVE (Negative); KETONES,URINE 2+ (Negative); LEUKOCYTE ESTERASE,URINE 1+ (Negative); NITRITE,URINE NEGATIVE (Negative); OCCULT BLOOD,URINE NEGATIVE (Negative); PH,URINE 6.5 (5.0-8.0); PROTEIN,URINE NEGATIVE (Negative); UROBILINOGEN,URINE 0.2 (0.2-1.0)
[2023-09-26 13:42] LABS: BACTERIA,URINE FEW /hpf (FEW); MUCUS,URINE RARE /hpf (FEW); RBC,URINE 0-5 /hpf (0-5); SQUAMOUS EPITHELIAL CELLS,UR 0-5 /hpf (0-5); WBC,URINE 0-5 /hpf (0-5)
== END 2023-09-26 13:45 | disposition home or self-care (01) ==
LOC: JD.ED 10:03
DX: O21.0 Mild hyperemesis gravidarum (principal); O98.512 Other viral diseases complicating pregnancy, second trimester; B34.9 Viral infection, unspecified; Z3A.16 16 weeks gestation of pregnancy; Z91.018 Allergy to other foods; Z91.048 Other nonmedicinal substance allergy status; Z79.899 Other long term (current) drug therapy; Z86.16 Personal history of COVID-19
CPT/HCPCS: 0241U; 36415; 80053; 81001; 83735; 85025; 86140; 96361; 96365; 96375; 99284; J2405; J2550; J3490; J7030; 99283

== ENCOUNTER 2024-03-05 22:06 | Inpatient (IN) | payer OTHER ==
[~2024-03-05 22:06] MED LIST changes: +Bupivacaine 0.25% 10 ML SDV ONE; -Lactated Ringers 1,000 ML IV SCH; -Lidocaine 1%/Sod Bicarbonate in NS 8.4% 1 ML Syringe IDERM PRN; -Sodium Chloride 0.9% 10 ML Syringe FLUSH PRN
[2024-03-05] MEDS ORDERED: Ondansetron 4 MG/2 ML SDV IVPUSH PRN (22:35)
[2024-03-05] MEDS ORDERED: Lidocaine 1% 50 ML MDV INJECT PRN (22:35)
[2024-03-05] MEDS ORDERED: Acetaminophen 325 MG Tab PO PRN (22:35)
[2024-03-05] MEDS ORDERED: Oxytocin/0.9 % Sodium Chloride 30 UNIT/500 ML BAG IV SCH (22:45)
[2024-03-05 22:55] LABS: BASOPHILS PERCENT AUTO 0.2 % (0.0-1.0); EOSINOPHILS PERCENT AUTO 0.3 % (0.0-6.0); HEMATOCRIT 36.9 % (37.0-47.0); HEMOGLOBIN 12.2 gm/dl (12.0-16.0); IMMATURE GRAN ABSOLUTE AUTO 0.04 K/mm3 (0.00-0.05); IMMATURE GRAN PERCENT AUTO 0.4 % (0.0-0.4); MEAN CORPUSCULAR HEMOGLOBIN 27.1 pg (28.0-32.0); MEAN CORPUSCULAR HGB CONC 33.1 g/dl (32.0-36.0); MEAN CORPUSCULAR VOLUME 81.8 fl (83.0-99.0); MEAN PLATELET VOLUME 9.6 fl (9.4-12.3); MONOCYTES ABSOLUTE AUTO 0.8 K/mm3 (0.0-0.8); MONOCYTES PERCENT AUTO 8.4 % (0.0-8.0); NEUTROPHILS PERCENT AUTO 70.7 % (41.0-71.0); PLATELET COUNT,PLT 249 K/mm3 (150-400); RED BLOOD CELL COUNT 4.51 M/mm3 (4.10-5.30); WHITE BLOOD CELL COUNT,WBC 9.88 K/mm3 (3.9-11.3)
[2024-03-05] MEDS: Lactated Ringers 1,000 ML IV SCH (23:13)
[2024-03-05] MEDS: fentaNYL 100 MCG/2 ML SDV EPIDUR PRN (23:45)
[2024-03-05] MEDS ORDERED: ePHEDrine 50 MG/ML SDV IVPUSH PRN (23:46)
[2024-03-05] MEDS ORDERED: diphenhydrAMINE 50 MG/ML SDV IVPUSH PRN (23:46)
[2024-03-05] MEDS: Bupivacaine/fentaNYL/NS 100 ML Bag EPIDUR PRN (23:56)
[2024-03-06] MEDS: Calcium Carbonate 500 MG Tab.Chew PO PRN (03:21)
[2024-03-06] MEDS: Oxytocin/0.9 % Sodium Chloride 30 UNIT/500 ML BAG IV SCH (05:17)
[2024-03-06] MEDS ORDERED: Magnesium Hydroxide 400 MG/5 ML Susp 30 ML Cup PO PRN (07:54)
[2024-03-06] MEDS ORDERED: Simethicone 80 MG Tab.Chew PO PRN (07:54)
[2024-03-06] MEDS ORDERED: Hydrocortisone Acetate 25 MG Supp RECTAL PRN (07:54)
[2024-03-06] MEDS ORDERED: Docusate Sodium 100 MG Cap PO PRN (07:54)
[2024-03-06] MEDS ORDERED: Oxytocin/Lactated Ringers 30 UNIT/500 ML BAG IV SCH (07:54)
[2024-03-06] MEDS: Ibuprofen 600 MG Tab PO SCH (08:51)
[2024-03-06] MEDS: Witch Hazel Medicated Pads 40/Jar TOP PRN (08:52)
[2024-03-06] MEDS: Benzocaine/Menthol 20%-0.5% Spray 78 GM Cannister TOP PRN (08:52)
[2024-03-06] MEDS: Prenatal Multivitamin with Calcium/Folic Acid/Iron Tab PO SCH (08:52)
[2024-03-07] MEDS: Acetaminophen 325 MG Tab PO PRN (00:33)
== END 2024-03-07 17:20 | disposition home or self-care (01) | DRG 807 ==
LOC: JD.OBCHECK 22:06 → JD.OB 22:14 → JD.OBCHECK 22:35 → OBSVTOIN 03-06 05:17 → JD.OB 03-06 05:18
PROVIDERS: ADMIT Obstetrics & Gynecology; ATTEND Obstetrics & Gynecology
PROC: 10E0XZZ Delivery of Products of Conception, External Approach (ICD-10-PCS; principal; 2024-03-06)
PROC: 3E0R3BZ Introduction of Anesthetic Agent into Spinal Canal, Percutaneous Approach (ICD-10-PCS; 2024-03-06)
PROC: 00HU33Z Insertion of Infusion Device into Spinal Canal, Percutaneous Approach (ICD-10-PCS; 2024-03-06)
DX: O99.344 Other mental disorders complicating childbirth (principal); Z37.0 Single live birth; F41.9 Anxiety disorder, unspecified; O34.219 Maternal care for unspecified type scar from previous cesarean delivery; F31.9 Bipolar disorder, unspecified; O21.0 Mild hyperemesis gravidarum; Z3A.39 39 weeks gestation of pregnancy; O71.89 Other specified obstetric trauma; Z86.16 Personal history of COVID-19; Z98.890 Other specified postprocedural states; Z90.89 Acquired absence of other organs; Z90.722 Acquired absence of ovaries, bilateral
CPT/HCPCS: 36415; 51702; 59025; 59409; 85025; 86592; 86850; 86900; 86901; A9270-GY; J0665; J3010; J3490; J7120; J7999